=== PATIENT | male | born 1940 | race Caucasian/White ===

== ENCOUNTER 2020-05-01 13:11 | Emergency (ER) | payer OTHER ==
[~2020-05-01] VITALS: Ht 175.3 cm; Wt 63.6 kg
--- NOTE | 2020-05-01 13:41 | PHYS DOC ---
Past Medical History Additional Past Medical Histor: RA, chronic neck knee and elbow pain Past Surgical History multiple surgeries of the neck and elbow. bilateral knee surgeries. Alcohol Use: None Drug Use: None General Adult EDM: Chief Complaint: MECHANICAL FALL HPI: HPI: 79-year-old male presenting to the emergency department today after falling yesterday when he was looking at houses. He reports sustaining a mechanical fall without syncope. He fell and hit his head. He is not on blood thinners. He did not pass out. He has not had any symptoms since falling other than some mild neck pain. He denies any numbness weakness or tingling of his arms or legs. Review of systems is negative for chest pain shortness of breath abdominal pain. He has some lower back pain in the muscles without any pain in the middle of the spine. All other review of systems negative. ED course: 79-year-old male presenting after sustaining mechanical fall hitting his head. CT the head and max face are unremarkable. Patient cervical spine CT shows T1 mild superior endplate compression fracture of unknown age. I called our neurosurgeon who is able to evaluate the films and believe this to be chronic and not acute in age. We will discharge patient from the emergency department and refer him out patient to neurosurgery in the next day or 2. Heart Score: Risk Factors: Risk Factors: DM, Current or recent (<one month) smoker, HTN, HLP, family hist ory of CAD, obesity. Risk Scores: Score 0 - 3: 2.5% MACE over next 6 weeks - Discharge Home Score 4 - 6: 20.3% MACE over next 6 weeks - Admit for Clinical Observation Score 7 - 10: 72.7% MACE over next 6 weeks - Early Invasive Strategies Physical Exam: PE: Constitutional: Well developed, well nourished, no acute distress, non-toxic appearance. [] HENT: Normocephalic, ecchymosis on the upper portion of the patient's eyebrow medial to the eye, bilateral external ears normal, oropharynx moist, no oral exudates, nose normal. [] There is no midface instability. Eyes: PERRLA, EOMI, conjunctiva normal, no discharge. [] Neck: Normal range of motion, no tenderness, supple, no stridor. [] Nontender midline. No step-offs abrasions lacerations or ecchymosis. Cardiovascular:Heart rate regular rhythm, no murmur [] Lungs & Thorax: Bilateral breath sounds clear to auscultation [] Abdomen: Bowel sounds normal, soft, no tenderness, no masses, no pulsatile masses. [] Skin: Warm, dry, no erythema, no rash. [] Back: No tenderness, no CVA tenderness. [] Patient is nontender midline thoracic Extremities: No tenderness, no cyanosis, no clubbing, ROM intact, no edema. [] Neurologic: Alert and oriented X 3, normal motor function, normal sensory function, no focal deficits noted. [] Psychologic: Affect normal, judgement normal, mood normal. [] EKG: EKG: [] Radiology/Procedures: Radiology/Procedures: [] Course & Med Decision Making: Course & Med Decision Making Pertinent Labs and Imaging studies reviewed. (See chart for details) [] Dragon Disclaimer: Dragon Disclaimer: This electronic medical record was generated, in whole or in part, using a voice recognition dictation system. Departure Departure Impression: Primary Impression: Head injury Disposition: 01 HOME, SELF-CARE Condition: STABLE Referrals: GEORGE CAZARES MD 2 days Patient Instructions: Head Injury, Adult Justicifation of Admission Dx: Justifications for Admission: Justification of Admission Dx: DULCE Cast MD May 01, 2020 13:41
--- NOTE | 2020-05-01 14:19 | RAD ---
CT MAXILLOFACIAL WO CONTRAST, CT HEAD AND CERVICAL SPINE WO History: Reason: facial injury / Spl. Instructions: / History: Comparison: None. Technique: Noncontrast CT imaging was performed of the head, maxillofacial and cervical spine. Coronal and sagittal reconstructions were performed. Exposure: One or more of the following individualized dose reduction techniques were utilized for this examination: 1. Automated exposure control 2. Adjustment of the mA and/or kV according to patient size 3. Use of iterative reconstruction technique. Findings: Head CT: No intracranial hemorrhage. No mass effect. No hydrocephalus. Mild foci of decreased attenuation within the hemispheric white matter, most often due to chronic microvascular ischemia. Maxillofacial CT: No acute maxillofacial fracture. Orbits are unremarkable. Paranasal sinuses and mastoid air cells are clear. No acute calvarial fracture. Cervical spine CT: Anterior stabilization and interbody fusion C5-C7. Chronic appearing T1 superior endplate mild compression deformity. C1-C2 degenerative changes. Multilevel cervical spondylosis with facet arthropathy. Multilevel neuroforaminal narrowing. C5-C6 posterior osteophyte contributing to mild canal narrowing. No high-grade canal stenosis. Biapical fibronodular stranding. Impression: Head CT: 1. No acute intracranial abnormality. Maxillofacial CT: 1. No acute maxillofacial fracture. Cervical spine CT: 1. Chronic appearing T1 mild superior endplate compression fracture although age indeterminate. Recommend comparison with prior imaging studies. If concern with focal pain, MRI can better evaluate. 2. Postoperative changes cervical spine. 3. Multilevel cervical spondylosis. Electronically signed by: Edu Del Real DO (05/01/2020 2:16 PM) [id number]
[2020-05-01 15:22] VITALS: BP 166/77
--- NOTE | 2020-05-02 04:33 | EKG ---
[facility] [address] [place] [address] Test Date: 2020-05-01 Test Time: 13:21:23 Pat Name: MIKE ANDERSON Department: Room: Gender: M Surgical Coordinator: : 1940 Requested By: DULCE WOODSON Order Number: [id number] Reading MD: Measurements Intervals [place] Rate: 60 P: 54 ME: 142 QRS: 49 QRSD: 92 T: 51 QT: 398 QTc: 398 Interpretive Statements SINUS RHYTHM NORMAL ECG RI6.01 No previous ECG available for comparison
== END 2020-05-01 15:30 | disposition home or self-care (01) ==
LOC: ER 13:11
DX: S00.12XA Contusion of left eyelid and periocular area, initial encounter (principal); S00.11XA Contusion of right eyelid and periocular area, initial encounter; M54.2 Cervicalgia; M54.5 Low back pain; G89.29 Other chronic pain; Z98.890 Other specified postprocedural states; W18.39XA Other fall on same level, initial encounter; Y93.89 Activity, other specified; Y92.098 Other place in other non-institutional residence as the place of occurrence of the external cause; Y99.8 Other external cause status
CPT/HCPCS: 70450; 70486; 72125; 93005; 99285

== ENCOUNTER 2021-08-04 11:25 | Inpatient (IN) | payer MEDICARE, OTHER ==
[~2021-08-04] VITALS: Ht 175.3 cm; Wt 59.2 kg
[2021-08-04] MEDS ORDERED: MORPHINE SULFATE 4 MG/ML INJ. IVP ONE ×2 (11:45→13:00)
[2021-08-04] MEDS ORDERED: IV NORMAL SALINE 1000ML BAG 1,000 ML IV ONE (11:45)
[2021-08-04 12:21] LABS: BILIRUBIN,URINE NEGATIVE (NEG); CLARITY,URINE CLEAR; COLOR,URINE YELLOW; NITRITE,URINE NEGATIVE (NEG); PH,URINE 7.5 (<5.0-8.0); PROTEIN,URINE NEGATIVE (NEG-TRACE); UROBILINOGEN,URINE 0.2 mg/dL (0.2 mg/dL)
[2021-08-04 12:22] LABS: BASO # 0.1 x10^3/uL (0.0-0.2); BASO % 1 % (0-3); EOS # 0.2 x10^3/uL (0.0-0.7); EOS % 2 % (0-3); HEMATOCRIT 32.2 % (39.0-53.0); HEMOGLOBIN 10.8 g/dL (13.0-17.5); LYMPH # 1.4 x10^3/uL (1.0-4.8); LYMPH % 14 % (24-48); MEAN CORPUSCULAR HEMOGLOBIN 33 pg (25-35); MEAN CORPUSCULAR HGB CONC 33 g/dL (31-37); MEAN CORPUSCULAR VOLUME 97 fL (79-100); MONO # 0.7 x10^3/uL (0.0-1.1); MONO % 7 % (0-9); NEUT # 7.8 x10^3/uL (1.8-7.7); NEUT % 76 % (31-73); PLATELET COUNT 201 x10^3/uL (140-400); RED BLOOD COUNT 3.31 x10^6/uL (4.30-5.70); RED CELL DISTRIBUTION WIDTH 13.2 % (11.5-14.5); WHITE BLOOD COUNT 10.2 x10^3/uL (4.0-11.0)
[2021-08-04 12:28] LABS: CALCIUM 8.5 mg/dL (8.5-10.1); CREATININE 1.3 mg/dL (0.7-1.3); GFR 52.9; POTASSIUM 4.1 mmol/L (3.5-5.1)
[2021-08-04 12:31] LABS: BACTERIA,URINE FEW /HPF (0-FEW); RBC,URINE OCC /HPF (0-2)
[2021-08-04 12:35] LABS: ALBUMIN 3.2 g/dL (3.4-5.0); ALBUMIN/GLOBULIN RATIO 1.1 (1.0-1.7); TOTAL BILIRUBIN 0.4 mg/dL (0.2-1.0)
--- NOTE | 2021-08-04 12:35 | RAD ---
XR CHEST 1V History: Perioperative. Comparison: None. Technique: Portable AP radiograph of the chest. Findings: The lungs are hyperinflated. No focal airspace consolidation, pleural effusion or pneumothorax. Biapi gal pleural thickening. Cardiomediastinal silhouette and pulmonary vasculature are within normal limi ts. Lower cervical ACDF. No acute osseous abnormality. Soft tissues are unremarkable. Impression: 1. No acute cardiopulmonary process. Electronically signed by: Desmond Craig MD (08/04/2021 12:33 PM) [id number]
--- NOTE | 2021-08-04 12:45 | PDOC1 ---
History and Physical Date of Admission Date of Admission DATE: 08/04/21 TIME: 12:44 Identification/Chief Complaint Chief Complaint right hip pain after fall out side home today History of Present Illness History of Present Illness 81 yr old male who fell today , outside his home, denies syncope, just fell on uneven ground / x ray c/w right hip fax, he has noted a mild cough and Covid 19 screen is pos in ER today denies chest pain, fever, abdominal pain, head or neck injury hgb 10.8 cr 1.3 , remote smoker has hx CAD with stents, remote// hx Anterior stabilization and interbody fusion C5-C7 EKG @1133 NSR at 64bpm, NO ST elevation, QRS 92ms, QT/QTc 386/402ms,/ denies any numbness weakness or tingling of his arms or legs. impression Mechanical fall at home, accidental / Acute Comminuted intertrochanteric fracture of the right proximal femur. /Covid POS screen in ER, minimal symptoms Essential hypertension plan consult ortho, consult cardiology pre-op exam, consider echo Past Medical History Past Medical History Past Medical History Past Medical History: Hypertension, [place] Additional Past Medical Histor: RA, chronic neck knee and elbow pain Past Surgical History: Knee Replacement Additional Past Surgical Histo: RA, 4 CARDIAC STENTS, EXTENSIVE ELBOW SURGERIES, L hip fx Smoking Status: Former Smoker Alcohol Use: None Drug Use: None FHX COPD, HTN Heme/Onc: Anemia NOS Family History Family History: Hypertension Social History Smoke: Quit ALCOHOL: none Drugs: None Current Medications Current Medications Current Medications Sodium Chloride 1,000 ml @ 1,000 mls/hr 1X ONCE IV Last administered on 08/04/21at 12:15; Start 08/04/21 at 11:45; Stop 08/04/21 at 12:44; Status DC Morphine Sulfate (Morphine Sulfate) 4 mg 1X ONCE IVP Last administered on 08/04/21at 11:51; Start 08/04/21 at 11:45; Stop 08/04/21 at 11:46; Status DC Allergies Allergies: Coded Allergies: iodamide (Verified Allergy, Severe, anaphylaxis, 08/04/21) ROS General: No: Chills, Night Sweats, Fatigue, Malaise, Appetite, Other PSYCHOLOGICAL ROS: No: Anxiety, Behavioral Disorder, Concentration difficultie, Decreased libido, Depression, Disorientation, Hallucinations, Hostility, Irritablity, Memory difficulties, Mood Swings, Obsessive thoughts, Physical abuse, Sexual abuse, Sleep disturbances, Suicidal ideation, Other Eyes: No Blurry vision, No Decreased vision, No Double vision, No Dry eyes, No Excessive tearing, No Eye Pain, No Itchy Eyes, No Loss of vision, No Photophobia, No Scotomata, No Uses contacts, No Uses glasses, No Other HEENT: No: Heacaches, Visual Changes, Hearing change, Nasal congestion, Nasal discharge, Oral lesions, Sinus pain, Sore Throat, Epistaxis, Sneezing, Snoring, Tinnitus, Vertigo, Vocal changes, Other ALLERGY AND IMMUNOLOGY: YES: Hives; No: Insect Bite Sensitivity, Itchy/Watery Eyes, Nasal Congestion, Post Nasal Drip, Seasonal Allergies, Other Hematological and Lymphatic: No: Bleeding Problems, Blood Clots, Blood Transfusions, Brusing, Night Sweats, Pallor, Swollen Lymph Nodes, Other ENDOCRINE: No: Breast Changes, Galactorrhea, Hair Pattern Changes, Hot Flashes, Malaise/lethargy, Mood Swings, Palpitations, Polydipsia/polyuria, Skin Changes, Temperature Intolerance, Unexpected Weight Changes, Other Breast: No New/Changing Breast Lumps, No Nipple changes, No Nipple discharge, No Other Respiratory: YES: Cough; No: Hemoptysis, Orthopnea, Pleuritic Pain, Shortness of breath, SOB with excertion, Sputum Changes, Stridor, Tachypnea, Wheezing, Other Cardiovascular: No Chest Pain, No Palpitations, No Orthopnea, No Paroxysmal Noc. Dyspnea, No Edema, No Lt Headedness, No Other Gastrointestinal: No Nausea, No Vomiting, No Abdominal Pain, No Diarrhea, No Constipation, No Melena, No Hematochezia, No Other Genitourinary: No Dysuria, No Frequency, No Incontinence, No Hematuria, No Retention, No Discharge, No Urgency, No Pain, No Flank Pain, No Other, No , No , No , No , No , No , No Musculoskeletal: Yes Gait Disturbance, Yes Joint Pain, Yes Joint Stiffness, Yes Joint Swelling, Yes Pain In: (r hip) Neurological: Yes Gait Disturbance; No Behavorial Changes, No Bowel/Bladder ControlChng, No Confusion, No Dizziness, No Headaches, No Impaired Coord/balance, No Memory Loss, No Numbness/Tingling, No Seizures, No Speech Problems, No Tremors, No Visual Changes, No Weakness, No Other Skin: No Dry Skin, No Eczema, No Hair Changes, No Lumps, No Mole Changes, No Mottling, No Nail Changes, No Pruritus, No Rash, No Skin Lesion Changes, No Other, No Acne Physical Exam Physical Exam Neck: Normal range of motion, no tenderness, supple, no stridor. Cardiovascular:Heart rate regular rhythm, no murmur [] Lungs & Thorax: Bilateral breath sounds clear to auscultation [] Abdomen: Bowel sounds normal, soft, no tenderness, no masses, no pulsatile masses. [] Skin: Warm, dry, no erythema, no rash. [] Back: No tenderness, no CVA tenderness. [] Patient is nontender midline thoracic Extremities: r hip tender, ext rotation no cyanosis, no clubbing, no edema. [] Neurologic: Alert and oriented X 3, General: Alert, Oriented X3, Cooperative, mild distress HEENT: Atraumatic, PERRLA, EOMI, Mucous membr. moist/pink Lungs: Clear to auscultation, Normal air movement Heart: S1S2, RRR, no thrills, no gallops, no murmurs Breasts: Not examined Abdomen: Normal bowel sounds, Soft Rectal Exam: not examined PELVIC: Examination not indicated Extremities: No cyanosis, No edema Skin: No significant lesion Neuro: Normal speech, Strength at 5/5 X4 ext, Sensation intact, Cranial nerves 3-12 NL Psych/Mental Status: Mental status NL, Mood NL Vitals Vitals Vital Signs Date Time Temp Pulse Resp B/P (MAP) Pulse Ox O2 Delivery O2 Flow Rate FiO2 08/04/21 11:51 16 96 Room Air 08/04/21 11:40 98.1 65 165/75 (105) 98.1 Labs Labs Laboratory Tests Test 08/04/21 12:03 08/04/21 12:05 08/04/21 12:08 Urine Collection Type Void Urine Color Yellow Urine Clarity Clear Urine pH 7.5 (<5.0-8.0) Urine Specific [place] <=1.005 (1.000-1.030) Urine Protein Negative mg/dL (NEG-TRACE) Urine Glucose (UA) Negative mg/dL (NEG) Urine Ketones (Stick) Negative mg/dL (NEG) Urine Blood Negative (NEG) Urine Nitrite Negative (NEG) Urine Bilirubin Negative (NEG) Urine Urobilinogen Dipstick 0.2 mg/dL (0.2 mg/dL) Urine Leukocyte Esterase Trace (NEG) Urine RBC Occ /HPF (0-2) Urine WBC 5-10 /HPF (0-4) Urine Bacteria Few /HPF (0-FEW) SARS-CoV-2 Antigen (Rapid) Positive (NEGATIVE) White Blood Count 10.2 x10^3/uL (4.0-11.0) Red Blood Count 3.31 x10^6/uL (4.30-5.70) Hemoglobin 10.8 g/dL (13.0-17.5) Hematocrit 32.2 % (39.0-53.0) Mean Corpuscular Volume 97 fL (79-100) Mean Corpuscular Hemoglobin 33 pg (25-35) Mean Corpuscular Hemoglobin Concent 33 g/dL (31-37) Red Cell Distribution Width 13.2 % (11.5-14.5) Platelet Count 201 x10^3/uL (140-400) Neutrophils (%) (Auto) 76 % (31-73) Lymphocytes (%) (Auto) 14 % (24-48) Monocytes (%) (Auto) 7 % (0-9) Eosinophils (%) (Auto) 2 % (0-3) Basophils (%) (Auto) 1 % (0-3) Neutrophils # (Auto) 7.8 x10^3/uL (1.8-7.7) Lymphocytes # (Auto) 1.4 x10^3/uL (1.0-4.8) Monocytes # (Auto) 0.7 x10^3/uL (0.0-1.1) Eosinophils # (Auto) 0.2 x10^3/uL (0.0-0.7) Basophils # (Auto) 0.1 x10^3/uL (0.0-0.2) Sodium Level 138 mmol/L (136-145) Potassium Level 4.1 mmol/L (3.5-5.1) Chloride Level 104 mmol/L (98-107) Carbon Dioxide Level 26 mmol/L (21-32) Anion Gap 8 (6-14) Blood Urea Nitrogen 41 mg/dL (8-26) Creatinine 1.3 mg/dL (0.7-1.3) Estimated GFR (Cockcroft-Gault) 52.9 BUN/Creatinine Ratio 32 (6-20) Glucose Level 113 mg/dL (70-99) Calcium Level 8.5 mg/dL (8.5-10.1) Magnesium Level 2.0 mg/dL (1.8-2.4) Total Bilirubin 0.4 mg/dL (0.2-1.0) Aspartate Amino Transf (AST/SGOT) 28 U/L (15-37) Alanine Aminotransferase (ALT/SGPT) 30 U/L (16-63) Alkaline Phosphatase 80 U/L (46-116) Creatine Kinase 110 U/L (39-308) Creatine Kinase MB (Mass) 2.3 ng/mL (0.0-3.6) Creatine Kinase MB Relative Index 2.1 % (0-4) Troponin I Quantitative < 0.017 ng/mL (0.000-0.055) Total Protein 6.0 g/dL (6.4-8.2) Albumin 3.2 g/dL (3.4-5.0) Albumin/Globulin Ratio 1.1 (1.0-1.7) Laboratory Tests Test 08/04/21 12:03 08/04/21 12:05 08/04/21 12:08 Urine Collection Type Void Urine Color Yellow Urine Clarity Clear Urine pH 7.5 (<5.0-8.0) Urine Specific [place] <=1.005 (1.000-1.030) Urine Protein Negative mg/dL (NEG-TRACE) Urine Glucose (UA) Negative mg/dL (NEG) Urine Ketones (Stick) Negative mg/dL (NEG) Urine Blood Negative (NEG) Urine Nitrite Negative (NEG) Urine Bilirubin Negative (NEG) Urine Urobilinogen Dipstick 0.2 mg/dL (0.2 mg/dL) Urine Leukocyte Esterase Trace (NEG) Urine RBC Occ /HPF (0-2) Urine WBC 5-10 /HPF (0-4) Urine Bacteria Few /HPF (0-FEW) SARS-CoV-2 Antigen (Rapid) Positive (NEGATIVE) White Blood Count 10.2 x10^3/uL (4.0-11.0) Red Blood Count 3.31 x10^6/uL (4.30-5.70) Hemoglobin 10.8 g/dL (13.0-17.5) Hematocrit 32.2 % (39.0-53.0) Mean Corpuscular Volume 97 fL (79-100) Mean Corpuscular Hemoglobin 33 pg (25-35) Mean Corpuscular Hemoglobin Concent 33 g/dL (31-37) Red Cell Distribution Width 13.2 % (11.5-14.5) Platelet Count 201 x10^3/uL (140-400) Neutrophils (%) (Auto) 76 % (31-73) Lymphocytes (%) (Auto) 14 % (24-48) Monocytes (%) (Auto) 7 % (0-9) Eosinophils (%) (Auto) 2 % (0-3) Basophils (%) (Auto) 1 % (0-3) Neutrophils # (Auto) 7.8 x10^3/uL (1.8-7.7) Lymphocytes # (Auto) 1.4 x10^3/uL (1.0-4.8) Monocytes # (Auto) 0.7 x10^3/uL (0.0-1.1) Eosinophils # (Auto) 0.2 x10^3/uL (0.0-0.7) Basophils # (Auto) 0.1 x10^3/uL (0.0-0.2) Sodium Level 138 mmol/L (136-145) Potassium Level 4.1 mmol/L (3.5-5.1) Chloride Level 104 mmol/L (98-107) Carbon Dioxide Level 26 mmol/L (21-32) Anion Gap 8 (6-14) Blood Urea Nitrogen 41 mg/dL (8-26) Creatinine 1.3 mg/dL (0.7-1.3) Estimated GFR (Cockcroft-Gault) 52.9 BUN/Creatinine Ratio 32 (6-20) Glucose Level 113 mg/dL (70-99) Calcium Level 8.5 mg/dL (8.5-10.1) Magnesium Level 2.0 mg/dL (1.8-2.4) Total Bilirubin 0.4 mg/dL (0.2-1.0) Aspartate Amino Transf (AST/SGOT) 28 U/L (15-37) Alanine Aminotransferase (ALT/SGPT) 30 U/L (16-63) Alkaline Phosphatase 80 U/L (46-116) Creatine Kinase 110 U/L (39-308) Creatine Kinase MB (Mass) 2.3 ng/mL (0.0-3.6) Creatine Kinase MB Relative Index 2.1 % (0-4) Troponin I Quantitative < 0.017 ng/mL (0.000-0.055) Total Protein 6.0 g/dL (6.4-8.2) Albumin 3.2 g/dL (3.4-5.0) Albumin/Globulin Ratio 1.1 (1.0-1.7) Images Images History: Reason: facial injury / Spl. Instructions: / History: Comparison: None. Technique: Noncontrast CT imaging was performed of the head, maxillofacial and cervical spine. Coronal and sagittal reconstructions were performed. Exposure: One or more of the following individualized dose reduction techniques were utilized for this examination: 1. Automated exposure control 2. Adjustment of the mA and/or kV according to patient size 3. Use of iterative reconstruction technique. Findings: Head CT: No intracranial hemorrhage. No mass effect. No hydrocephalus. Mild foci of decreased attenuation within the hemispheric white matter, most often due to chronic microvascular ischemia. Maxillofacial CT: No acute maxillofacial fracture. Orbits are unremarkable. Paranasal sinuses and mastoid air cells are clear. No acute calvarial fracture. Cervical spine CT: Anterior stabilization and interbody fusion C5 History: Reason: facial injury / Spl. Instructions: / History: Comparison: None. Technique: Noncontrast CT imaging was performed of the head, maxillofacial and cervical spine. Coronal and sagittal reconstructions were performed. Exposure: One or more of the following individualized dose reduction techniques were utilized for this examination: 1. Automated exposure control 2. Adjustment of the mA and/or kV according to patient size 3. Use of iterative reconstruction technique. Findings: Head CT: No intracranial hemorrhage. No mass effect. No hydrocephalus. Mild foci of decreased attenuation within the hemispheric white matter, most often due to chronic microvascular ischemia. Maxillofacial CT: No acute maxillofacial fracture. Orbits are unremarkable. Paranasal sinuses and mastoid air cells are clear. No acute calvarial fracture. Cervical spine CT: Anterior stabilization and interbody fusion C5-C7. Chronic appearing T1 superior endplate mild compression deformity. C1-C2 degenerative changes. Multilevel cervical spondylosis with facet arthropathy. Multilevel neuroforaminal narrowing. C5-C6 posterior osteophyte contributing to mild canal narrowing. No high-grade canal stenosis. Biapical fibronodular stranding. Impression: Head CT: 1. No acute intracranial abnormality. Maxillofacial CT: 1. No acute maxillofacial fracture.-C7. Chronic appearing T1 superior endplate mild compression deformity. C1-C2 degenerative changes. Multilevel cervical spondylosis with facet arthropathy. Multilevel neuroforaminal narrowing. C5-C6 posterior osteophyte contributing to mild canal narrowing. No high-grade canal stenosis. Biapical fibronodular stranding. Impression: Head CT: 1. No acute intracranial abnormality. Maxillofacial CT: 1. No acute maxillofacial fracture. PATIENT: MIKE ANDERSON ACCOUNT: [id number] : 1940 LOCATION: ER AGE: 81 SEX: M EXAM STATUS: PRE ER ORD. PHYSICIAN: LILY BENNETT DO REASON: right hip pain/deformity PROCEDURE: HIP RIGHT 2V WITH PELVIS XR BILATERAL HIP (WITH OR WITHOUT PELVIS) 2 VIEWS_RIGHT History: Right hip pain/deformity. Comparison: None. Technique: AP view of the pelvis and 2 coned-down views of the right hip. Findings: Osseous mineralization is normal. There is a comminuted intertrochanteric fracture of the right proximal femur. Approximately 1.2 cm displacement at the distal fracture margin. Minimal degenerative changes of the right femoral acetabular joint which remains normally aligned. Incidental screw fixation of the left femoral neck. Sacroiliac joints are unremarkable. Pubic rami are intact. Impression: 1. Comminuted intertrochanteric fracture of the right proximal femur. Electronically signed by: Desmond Castillo MD (08/04/2021 12:46 PM) [id number] DICTATED and SIGNED BY: DESMOND CASTILLO MD DATE: 08/04/21 [id number] PATIENT: MIKE ANDERSON ACCOUNT: [id number] : 1940 LOCATION: ER AGE: 81 SEX: M EXAM STATUS: PRE ER ORD. PHYSICIAN: LILY BENNETT DO REASON: perioperative PROCEDURE: CHEST AP ONLY XR CHEST 1V History: Perioperative. Comparison: None. Technique: Portable AP radiograph of the chest. Findings: The lungs are hyperinflated. No focal airspace consolidation, pleural effusion or pneumothorax. Biapical pleural thickening. Cardiomediastinal silhouette and pulmonary vasculature are within normal limits. Lower cervical ACDF. No acute osseous abnormality. Soft tissues are unremarkable. Impression: 1. No acute cardiopulmonary process. Electronically signed by: Desmond Castillo MD (08/04/2021 12:33 PM) [id number] DICTATED and SIGNED BY: DESMOND CASTILLO MD DATE: 08/04/21 [id number] VTE Prophylaxis Ordered VTE Prophylaxis Devices: Yes VTE Pharmacological Prophylaxi: No Assessment/Plan Assessment/Plan Impression: Mechanical fall at home, accidental Acute Comminuted intertrochanteric fracture of the right proximal femur. Covid POS screen in ER, minimal symptoms Essential hypertension remote tobacco abuse HX Anterior stabilization and interbody fusion C5-C7 plan admit consult ortho npo o2 support prn iv pain control dvt prophylaxis SQ LOVENOX May need SNF/ PT/OT Justifications for Admission Other Justification ERLIN WRIGHT MD Aug 04, 2021 12:45
--- NOTE | 2021-08-04 12:48 | RAD ---
XR BILATERAL HIP (WITH OR WITHOUT PELVIS) 2 VIEWS_RIGHT History: Right hip pain/deformity. Comparison: None. Technique: AP view of the pelvis and 2 coned-down views of the right hip. Findings: Osseous mineralization is normal. There is a comminuted intertrochanteric fracture of the right proxi mal femur. Approximately 1.2 cm displacement at the distal fracture margin. Minimal degenerative hanks ges of the right femoral acetabular joint which remains normally aligned. Incidental screw fixation o f the left femoral neck. Sacroiliac joints are unremarkable. Pubic rami are intact. Impression: 1. Comminuted intertrochanteric fracture of the right proximal femur. Electronically signed by: Desmond Craig MD (08/04/2021 12:46 PM) [id number]
--- NOTE | 2021-08-04 13:18 | PHYS DOC ---
Past Medical History Past Medical History: Hypertension, [place] Additional Past Medical Histor: RA, chronic neck knee and elbow pain Past Surgical History: Knee Replacement Additional Past Surgical Histo: RA, 4 CARDIAC STENTS, EXTENSIVE ELBOW SURGERIES, L hip fx Smoking Status: Former Smoker Alcohol Use: None Drug Use: None General Adult EDM: Chief Complaint: MECHANICAL FALL HPI: HPI: Patient is a 81-year-old male presents via EMS with report of mechanical trip and fall while outside at his home in the yard landing on his right hip just prior to arrival. Patient reports significant pain to hip. EMS reports concern for deformity. Patient denies numbness or tingling. Denies striking his head or any neck pain. Denies loss of consciousness. Patient does use Plavix. EMS reports giving patient 150 mcg of fentanyl in route. Patient does report some cough and generalized malaise and weakness over the last several days. Patient does report Covid vaccination with Moderna x2 with last dose being received in January 2021. Review of Systems: Review of Systems: Constitutional: Denies fever or chills; reports body aches Eyes: Denies redness or eye pain HENT: Denies nasal congestion or sore throat Respiratory: Reports cough; denies shortness of breath Cardiovascular: Denies chest pain or palpitations GI: Denies abdominal pain, nausea, or vomiting : Denies dysuria or hematuria Musculoskeletal: Denies neck pain; reports right hip pain Integument: Denies rash or skin lesions Neurologic: Denies headache, focal weakness or sensory changes Complete systems were reviewed and found to be within normal limits, except as documented in this note. Heart Score: C/O Chest Pain: N/A Current Medications: Current Medications Medications (Trade) Dose Ordered Sig/Cynthia Start Time Stop Time Status Last Admin Dose Admin Morphine Sulfate (Morphine Sulfate) 4 mg 1X ONCE 08/04/21 13:00 08/04/21 13:01 DC Sodium Chloride 1,000 ml @ 1,000 mls/hr 1X ONCE 08/04/21 11:45 08/04/21 12:44 DC 08/04/21 12:15 1,000 MLS/HR Allergies: Allergies: Allergies Coded Allergies Type Severity Reaction Last Updated Verified iodamide Allergy Severe anaphylaxis 08/04/21 Yes Physical Exam: PE: Constitutional: Well developed, well nourished, no acute distress, non-toxic appearance HENT: Normocephalic, atraumatic Eyes: PERRL, EOMI, conjunctiva normal, no discharge Neck: Normal range of motion, no midline tenderness, supple, no meningeal signs Lungs & Thorax: No respiratory distress, equal chest rise and fall Abdomen: Soft, no tenderness; pelvis stable and nontender Skin: Warm, dry, no erythema, no rash Back: No midline tenderness, no CVA tenderness Extremities: Right groin tenderness, ROM decreased due to pain, shortening of right leg noted Neurologic: Alert and oriented X 3, normal motor function, normal sensory function, no focal deficits noted Psychologic: Affect normal, judgment normal Current Patient Data: Labs: Laboratory Tests Test 08/04/21 12:03 08/04/21 12:05 08/04/21 12:08 Urine Collection Type Void Urine Color Yellow Urine Clarity Clear Urine pH 7.5 (<5.0-8.0) Urine Specific [place] <=1.005 (1.000-1.030) Urine Protein Negative mg/dL (NEG-TRACE) Urine Glucose (UA) Negative mg/dL (NEG) Urine Ketones (Stick) Negative mg/dL (NEG) Urine Blood Negative (NEG) Urine Nitrite Negative (NEG) Urine Bilirubin Negative (NEG) Urine Urobilinogen Dipstick 0.2 mg/dL (0.2 mg/dL) Urine Leukocyte Esterase Trace (NEG) Urine RBC Occ /HPF (0-2) Urine WBC 5-10 /HPF (0-4) Urine Bacteria Few /HPF (0-FEW) SARS-CoV-2 Antigen (Rapid) Positive (NEGATIVE) *A White Blood Count 10.2 x10^3/uL (4.0-11.0) Red Blood Count 3.31 x10^6/uL (4.30-5.70) L Hemoglobin 10.8 g/dL (13.0-17.5) L Hematocrit 32.2 % (39.0-53.0) L Mean Corpuscular Volume 97 fL (79-100) Mean Corpuscular Hemoglobin 33 pg (25-35) Mean Corpuscular Hemoglobin Concent 33 g/dL (31-37) Red Cell Distribution Width 13.2 % (11.5-14.5) Platelet Count 201 x10^3/uL (140-400) Neutrophils (%) (Auto) 76 % (31-73) H Lymphocytes (%) (Auto) 14 % (24-48) L Monocytes (%) (Auto) 7 % (0-9) Eosinophils (%) (Auto) 2 % (0-3) Basophils (%) (Auto) 1 % (0-3) Neutrophils # (Auto) 7.8 x10^3/uL (1.8-7.7) H Lymphocytes # (Auto) 1.4 x10^3/uL (1.0-4.8) Monocytes # (Auto) 0.7 x10^3/uL (0.0-1.1) Eosinophils # (Auto) 0.2 x10^3/uL (0.0-0.7) Basophils # (Auto) 0.1 x10^3/uL (0.0-0.2) Sodium Level 138 mmol/L (136-145) Potassium Level 4.1 mmol/L (3.5-5.1) Chloride Level 104 mmol/L (98-107) Carbon Dioxide Level 26 mmol/L (21-32) Anion Gap 8 (6-14) Blood Urea Nitrogen 41 mg/dL (8-26) H Creatinine 1.3 mg/dL (0.7-1.3) Estimated GFR (Cockcroft-Gault) 52.9 BUN/Creatinine Ratio 32 (6-20) H Glucose Level 113 mg/dL (70-99) H Calcium Level 8.5 mg/dL (8.5-10.1) Magnesium Level 2.0 mg/dL (1.8-2.4) Total Bilirubin 0.4 mg/dL (0.2-1.0) Aspartate Amino Transferase (AST) 28 U/L (15-37) Alanine Aminotransferase (ALT) 30 U/L (16-63) Alkaline Phosphatase 80 U/L (46-116) Creatine Kinase 110 U/L (39-308) Creatine Kinase MB (Mass) 2.3 ng/mL (0.0-3.6) Creatine Kinase MB Relative Index 2.1 % (0-4) Troponin I Quantitative < 0.017 ng/mL (0.000-0.055) Total Protein 6.0 g/dL (6.4-8.2) L Albumin 3.2 g/dL (3.4-5.0) L Albumin/Globulin Ratio 1.1 (1.0-1.7) Laboratory Tests 08/04/21 12:08 Laboratory Tests 08/04/21 12:08 Vital Signs: Vital Signs Date Time Temp Pulse Resp B/P (MAP) Pulse Ox O2 Delivery O2 Flow Rate FiO2 08/04/21 11:51 16 96 Room Air 08/04/21 11:40 98.1 65 165/75 (105) 98.1 EKG: EKG: @1133 NSR at 64bpm, NO ST elevation, QRS 92ms, QT/QTc 386/402ms, Radiology/Procedures: Radiology/Procedures: PROCEDURE: HIP RIGHT 2V WITH PELVIS XR BILATERAL HIP (WITH OR WITHOUT PELVIS) 2 VIEWS_RIGHT History: Right hip pain/deformity. Comparison: None. Technique: AP view of the pelvis and 2 coned-down views of the right hip. Findings: Osseous mineralization is normal. There is a comminuted intertrochanteric fracture of the right proximal femur. Approximately 1.2 cm displacement at the distal fracture margin. Minimal degenerative changes of the right femoral acetabular joint which remains normally aligned. Incidental screw fixation of the left femoral neck. Sacroiliac joints are unremarkable. Pubic rami are intact. Impression: 1. Comminuted intertrochanteric fracture of the right proximal femur. Electronically signed by: Desmond Craig MD (08/04/2021 12:46 PM) [id number] PROCEDURE: CHEST AP ONLY XR CHEST 1V History: Perioperative. Comparison: None. Technique: Portable AP radiograph of the chest. Findings: The lungs are hyperinflated. No focal airspace consolidation, pleural effusion or pneumothorax. Biapical pleural thickening. Cardiomediastinal silhouette and p ulmonary vasculature are within normal limits. Lower cervical ACDF. No acute osseous abnormality. Soft tissues are unremarkable. Impression: 1. No acute cardiopulmonary process. Electronically signed by: Desmond Craig MD (08/04/2021 12:33 PM) [id number] Course & Med Decision Making: Course & Med Decision Making Pertinent Labs and Imaging studies reviewed. (See chart for details) Patient presents via EMS with report of mechanical trip and fall with subsequent right hip pain and deformity. Limb neurovascularly intact. Patient denies any head trauma or neck pain. Pain addressed. X-ray confirmed right intertrochanteric fracture. EKG stable. Labs obtained and posted to chart. Chest x-ray without acute finding. Patient did undergo Covid testing with with rapid Covid test positive. Patient is Covid vaccinated. UA with signs of infect ion. Empiric antibiotic given. Discussed case with Dr. Scott (orthopedics) who is in agreement with consultation with plan for OR tomorrow. Patient requiring admission for further evaluation and treatment. Discussed with Dr. Schmitt (hospitalist) who is in agreement with admission. Discussed findings and plan with patient, who acknowledges understanding and agreement. Dragon Disclaimer: Dragon Disclaimer: This electronic medical record was generated, in whole or in part, using a voice recognition dictation system. Departure Departure Impression: Primary Impression: Fall Qualified Codes: W19.XXXA - Unspecified fall, initial encounter Additional Impressions: Intertrochanteric fracture of right hip Qualified Codes: S72.141A - Displaced intertrochanteric fracture of right femur, initial encounter for closed fracture COVID-19 UTI (urinary tract infection) Disposition: ADMITTED INPATIENT Admitting Physician: STEVE (Oskar) Condition: STABLE Referrals: RENEE BRENNER (PCP) LILY BENNETT DO Aug 04, 2021 13:18
[2021-08-04] MEDS ORDERED: 0.9 % SODIUM CHLORIDE 10 ML DISP.SYRIN. IV PRN (13:30)
[2021-08-04] MEDS ORDERED: guaiFENesin ORAL 200 MG/10 ML LIQUID. PO PRN (13:30)
[2021-08-04] MEDS ORDERED: MAG HYDROX/ALUMINUM HYD/SIMETH 30 ML ORAL.SUSP PO PRN (13:30)
[2021-08-04] MEDS ORDERED: ALBUTEROL SULFATE 2.5 MG/3 ML NEBU. NEB PRN (13:30)
[2021-08-04] MEDS ORDERED: DOCUSATE SODIUM 100 MG CAPSULE. PO PRN (13:30)
[2021-08-04] MEDS ORDERED: SODIUM PHOSPHATES 19/7GM 133 ML ENEMA. PR PRN (13:30)
[2021-08-04] MEDS ORDERED: ONDANSETRON PF 4 MG/2 ML VIAL. IV PRN (13:30)
[2021-08-04] MEDS ORDERED: ONDANSETRON PF 4 MG/2 ML VIAL. IVP PRN (13:30)
[2021-08-04] MEDS: ENOXAPARIN 40 MG/0.4 ML SYRINGE. SQ SCH (14:00)
[2021-08-04] MEDS ORDERED: HYDROmorphone 2 MG/ML VIAL IVP ONE (14:00)
[2021-08-04] MEDS: HYDROmorphone 2 MG/ML VIAL IV PRN ×3 (15:35→21:50)
[2021-08-04] MEDS: IV NORMAL SALINE 1000ML BAG 1,000 ML IV SCH (15:40)
[2021-08-04] MEDS ORDERED: GABA-585 PO (16:24)
[2021-08-04] MEDS ORDERED: ATOR20TA58 PO (16:24)
[2021-08-04] MEDS ORDERED: TOPI25TA7 PO (16:24)
[2021-08-04] MEDS ORDERED: TRAM50TA PO (16:24)
[2021-08-04] MEDS ORDERED: CLOP75TA PO (16:24)
[2021-08-04] MEDS ORDERED: METO-239 PO (16:24)
[2021-08-04] MEDS ORDERED: [UNRECOGNIZED DRUG - OTHER] PO (16:24)
[2021-08-04] MEDS ORDERED: ASPI-886 PO (16:24)
[2021-08-04] MEDS ORDERED: FAMO40TA4 PO (16:24)
--- NOTE | 2021-08-04 16:26 | NUR ---
Dr. Colbert at [facility] is primary music therapist [employer].
[2021-08-04] MEDS ORDERED: cefTRIAXone IV Push 1 GM VIAL. IVP ONE (17:00)
--- NOTE | 2021-08-04 18:25 | NUR ---
PATIENT ARRIVED ON THE UNIT PER BED, COMFORT MEASURES GIVEN, CARDIAC DIET OFFERED, PATIENT INFORMED THIS GANG DRILL OPERATOR THAT HE WOULD EAT AFTER HIS PAIN MEDICINE KICKS IN, NS RESTARTED AT 80CC/HR.
[2021-08-04] MEDS ORDERED: INFLUENZA VAX SCREEN BY RX. MC ONE (18:30)
[2021-08-04 19:00] VITALS: BP 157/76
[2021-08-04 23:18] VITALS: BP 156/67
[2021-08-05] VITALS (9 sets, daily range): BP systolic 120–152; BP diastolic 53–75
[2021-08-05] MEDS: fentaNYL PF VIAL 100 MCG/2 ML VIAL IVP PRN ×5 (00:40→15:01)
[2021-08-05] MEDS: IV NORMAL SALINE 1000ML BAG 1,000 ML IV SCH ×2 (03:44→14:30)
--- NOTE | 2021-08-05 11:01 | PDOC2 ---
CARDIAC CONSULT DATE OF CONSULT Date of Consult DATE: 08/05/21 TIME: 10:42 REASON FOR CONSULT Reason for Consult: preop cardiac eval, hx of CAD, ASHD REFERRING PHYSICIAN Referring Physician: Fullbright SOURCE Source: Chart review, Patient HISTORY OF PRESENT ILLNESS HISTORY OF PRESENT ILLNESS This is a pleasant 81 yo male admitted for complains of fall. This happened in his yard and was unable to get up and EMS arrived and noted deformity to his right leg. Currently the RLE has shorter length that the left. There was no associated chest pain, palpitations, SOA, and no dizziness or passing out related to the event. He has had several falls in the past and already had hip nailing to his left hip. He has CAD and had stents per his recollection last time was 3 yrs ago and follows up with [facility] cardiology. Further testing noted that he is positive for covid-19 and has been vaccinated last January. He has been having some mild nonproducitve cough and some weakness, Denies any DM, renal disease. PAST MEDICAL HISTORY Cardiovascular: CAD, HTN, Hyperlipidemia Pulmonary: COPD CENTRAL NERVOUS SYSTEM: TIA GI: GERD Musculoskeletal: Osteoarthritis, Other (falls) Rheumatologic: Rheumatoid arthritis Infectious disease: No pertinent hx Renal/: Benign prostatic enlarg. Endocrine: No pertinent hx Dermatology: Other (skin CA) PAST SURGICAL HISTORY Past Surgical History: Appendectomy, Arthroscopy (left hip nailing), Cataract Removal, Hernia Repair, Other (PCI) FAMILY HISTORY Family History: Hypertension SOCIAL HISTORY Smoke: Quit ALCOHOL: none Drugs: None Lives: with Family CURRENT MEDICATIONS CURRENT MEDICATIONS Current Medications Medications (Trade) Dose Ordered Sig/Cynthia Route PRN Reason Start Time Stop Time Status Last Admin Dose Admin Sodium Chloride 1,000 ml @ 1,000 mls/hr 1X ONCE IV 08/04/21 11:45 08/04/21 12:44 DC 08/04/21 12:15 Morphine Sulfate (Morphine Sulfate) 4 mg 1X ONCE IVP 08/04/21 11:45 08/04/21 11:46 DC 08/04/21 11:51 Morphine Sulfate (Morphine Sulfate) 4 mg 1X ONCE IVP 08/04/21 13:00 08/04/21 13:01 DC 08/04/21 13:23 Fentanyl Citrate (Fentanyl 2ml Vial) 50 mcg Q2HR PRN IVP PAIN 08/04/21 13:30 08/05/21 13:29 08/05/21 07:20 Sodium Chloride 1,000 ml @ 80 mls/hr [id number] IV 08/04/21 13:30 08/05/21 03:44 Hydromorphone HCl (Dilaudid) 0.4 mg PRN Q2HRS PRN IV SEVERE PAIN 7-10 08/04/21 13:30 08/04/21 21:50 Hydromorphone HCl (Dilaudid) 1 mg 1X ONCE IVP 08/04/21 14:00 08/04/21 14:01 DC 08/04/21 13:55 Ceftriaxone Sodium (Rocephin) 1 gm 1X ONCE IVP 08/04/21 17:00 08/04/21 17:01 DC 08/04/21 21:49 ALLERGIES ALLERGIES: Coded Allergies: iodamide (Verified Allergy, Severe, anaphylaxis, 08/04/21) ROS Review of System 14 point ROS evaluated with pertinent positives noted per HPI PHYSICAL EXAM General: Alert, Oriented X3, Cooperative, No acute distress HEENT: Atraumatic, Mucous membr. moist/pink Lungs: Clear to auscultation, Normal air movement Heart: Regular rate (SR), Normal S1, Normal S2, Other (3/6 systolic murmur to WILLY border) Abdomen: Soft, No tenderness Extremities: No cyanosis, No edema Skin: No breakdown, No significant lesion Neuro: Normal speech, Sensation intact Psych/Mental Status: Mental status NL, Mood NL MUSCULOSKELETAL: Osteoarthritic changes both hands, Other (RLE shorter than left) VITALS/I&O VITALS/I&O: Vital Signs Date Time Temp Pulse Resp B/P (MAP) Pulse Ox O2 Delivery O2 Flow Rate FiO2 08/05/21 10:19 96 Room Air 08/05/21 07:00 98.0 89 18 144/63 (90) 98.0 08/05/21 04:13 3.0 I & O 08/04/21 08/04/21 08/05/21 15:00 23:00 07:00 Intake Total 0 ml Output Total 150 ml Balance -150 ml LABS Lab: Laboratory Tests Test 08/04/21 12:03 08/04/21 12:05 08/04/21 12:08 Urine Collection Type Void Urine Color Yellow Urine Clarity Clear Urine pH 7.5 (<5.0-8.0) Urine Specific [place] <=1.005 (1.000-1.030) Urine Protein Negative mg/dL (NEG-TRACE) Urine Glucose (UA) Negative mg/dL (NEG) Urine Ketones (Stick) Negative mg/dL (NEG) Urine Blood Negative (NEG) Urine Nitrite Negative (NEG) Urine Bilirubin Negative (NEG) Urine Urobilinogen Dipstick 0.2 mg/dL (0.2 mg/dL) Urine Leukocyte Esterase Trace (NEG) Urine RBC Occ /HPF (0-2) Urine WBC 5-10 /HPF (0-4) Urine Bacteria Few /HPF (0-FEW) SARS-CoV-2 Antigen (Rapid) Positive (NEGATIVE) *A White Blood Count 10.2 x10^3/uL (4.0-11.0) Red Blood Count 3.31 x10^6/uL (4.30-5.70) L Hemoglobin 10.8 g/dL (13.0-17.5) L Hematocrit 32.2 % (39.0-53.0) L Mean Corpuscular Volume 97 fL (79-100) Mean Corpuscular Hemoglobin 33 pg (25-35) Mean Corpuscular Hemoglobin Concent 33 g/dL (31-37) Red Cell Distribution Width 13.2 % (11.5-14.5) Platelet Count 201 x10^3/uL (140-400) Neutrophils (%) (Auto) 76 % (31-73) H Lymphocytes (%) (Auto) 14 % (24-48) L Monocytes (%) (Auto) 7 % (0-9) Eosinophils (%) (Auto) 2 % (0-3) Basophils (%) (Auto) 1 % (0-3) Neutrophils # (Auto) 7.8 x10^3/uL (1.8-7.7) H Lymphocytes # (Auto) 1.4 x10^3/uL (1.0-4.8) Monocytes # (Auto) 0.7 x10^3/uL (0.0-1.1) Eosinophils # (Auto) 0.2 x10^3/uL (0.0-0.7) Basophils # (Auto) 0.1 x10^3/uL (0.0-0.2) Sodium Level 138 mmol/L (136-145) Potassium Level 4.1 mmol/L (3.5-5.1) Chloride Level 104 mmol/L (98-107) Carbon Dioxide Level 26 mmol/L (21-32) Anion Gap 8 (6-14) Blood Urea Nitrogen 41 mg/dL (8-26) H Creatinine 1.3 mg/dL (0.7-1.3) Estimated GFR (Cockcroft-Gault) 52.9 BUN/Creatinine Ratio 32 (6-20) H Glucose Level 113 mg/dL (70-99) H Calcium Level 8.5 mg/dL (8.5-10.1) Magnesium Level 2.0 mg/dL (1.8-2.4) Total Bilirubin 0.4 mg/dL (0.2-1.0) Aspartate Amino Transferase (AST) 28 U/L (15-37) Alanine Aminotransferase (ALT) 30 U/L (16-63) Alkaline Phosphatase 80 U/L (46-116) Creatine Kinase 110 U/L (39-308) Creatine Kinase MB (Mass) 2.3 ng/mL (0.0-3.6) Creatine Kinase MB Relative Index 2.1 % (0-4) Troponin I Quantitative < 0.017 ng/mL (0.000-0.055) Total Protein 6.0 g/dL (6.4-8.2) L Albumin 3.2 g/dL (3.4-5.0) L Albumin/Globulin Ratio 1.1 (1.0-1.7) Laboratory Tests 08/04/21 12:08 Laboratory Tests 08/04/21 12:08 ASSESSMENT/PLAN ASSESSMENT/PLAN 1. Viral syndrome with covid-19: vaccinated with moderna on 01/2021 2. Traumatic mechanical fall: possibly due to weakness 3. Comminuted intertrochanteric fracture of the right proximal femur. 4. CAD: stents about 3 yrs ago. clinically stable 5. HTN: controlled 6. HLP 7. COPD: stable 8. Hx of TIA Recommendations 1. Resume ASA and plavix and secondary prevention measures post op 2. Continue toprol preop 3. Surgery planned this evening. Low to moderate risk for perioperative CV events for noncardiac surgery 4. He had TTE early this yr and will try to obtain records. BLAKE GUZMAN APRN Aug 05, 2021 11:01
[2021-08-05 11:14] LABS: BASO % 0 % (0-3); EOS % 0 % (0-3); HEMOGLOBIN 10.3 g/dL (13.0-17.5); LYMPH # 0.6 x10^3/uL (1.0-4.8); LYMPH % 6 % (24-48); MEAN CORPUSCULAR HEMOGLOBIN 33 pg (25-35); MEAN CORPUSCULAR HGB CONC 34 g/dL (31-37); MEAN CORPUSCULAR VOLUME 96 fL (79-100); MONO % 9 % (0-9); NEUT # 9.7 x10^3/uL (1.8-7.7); NEUT % 85 % (31-73); PLATELET COUNT 163 x10^3/uL (140-400); RED BLOOD COUNT 3.12 x10^6/uL (4.30-5.70); RED CELL DISTRIBUTION WIDTH 13.8 % (11.5-14.5); WHITE BLOOD COUNT 11.4 x10^3/uL (4.0-11.0)
[2021-08-05 11:34] LABS: CALCIUM 8.2 mg/dL (8.5-10.1); GFR 71.5; POTASSIUM 4.2 mmol/L (3.5-5.1)
--- NOTE | 2021-08-05 11:34 | NUR ---
SW following. Discussed with RN, pt from home with , room air, NPO. COVID-19 positive (pt is vaccinated). Cardiology and Ortho following. Surgery planned for 1800 today. SW will continue to follow.
[2021-08-05] MEDS ORDERED: fentaNYL PF VIAL 100 MCG/2 ML VIAL IVP PRN ×2 (13:30)
[2021-08-05] MEDS ORDERED: MORPHINE SULFATE 2 MG/ML INJ. IVP PRN (13:30)
[2021-08-05] MEDS ORDERED: HYDROmorphone 2 MG/ML VIAL IVP PRN (13:30)
[2021-08-05] MEDS ORDERED: PROCHLORPERAZINE 10 MG/2 ML VIAL. IVP PRN (13:30)
[2021-08-05] MEDS ORDERED: IV RINGERS,LACTATED 1000ML 1,000 ML IV SCH (13:30)
[2021-08-05] MEDS: ENOXAPARIN 40 MG/0.4 ML SYRINGE. SQ SCH (14:00)
--- NOTE | 2021-08-05 15:30 | PDOC ---
[facility] PROGRESS NOTE Date of Service DOS: DATE: 08/05/21 TIME: 15:27 Chief Complaint Chief Complaint Mechanical fall at home, accidental Acute Comminuted intertrochanteric fracture of the right proximal femur. Covid POS screen in ER, minimal symptoms Essential hypertension remote tobacco abuse HX Anterior stabilization and interbody fusion C5-C7 Plan: admit consult ortho npo o2 support prn iv pain control dvt prophylaxis SQ LOVENOX May need SNF/ PT/OT History of Present Illness History of Present Illness 81 yr old male who fell today , outside his home, denies syncope, just fell on uneven ground / x ray c/w right hip fax, he has noted a mild cough and Covid 19 screen is pos in ER today denies chest pain, fever, abdominal pain, head or neck injury hgb 10.8 cr 1.3 , remote smoker has hx CAD with stents, remote// hx Anterior stabilization and interbody fusion C5-C7 EKG -133 NSR at 64bpm, NO ST elevation, QRS 92ms, QT/QTc 386/402ms,/ denies any numbness weakness or tingling of his arms or legs. impression Mechanical fall at home, accidental / Acute Comminuted intertrochanteric fracture of the right proximal femur. /Covid POS screen in ER, minimal symptoms Essential hypertension 08/05/2021: Afebrile, breathing room air. Surgery tentatively planned for this evening. Pain controlled with medications. Following surgery opiates began to work with PT for eventual SNU discharge. Vitals/I&O Vitals/I&O: Vital Signs Date Time Temp Pulse Resp B/P (MAP) Pulse Ox O2 Delivery O2 Flow Rate FiO2 08/05/21 15:01 95 Room Air 08/05/21 15:00 98.0 89 18 152/75 (100) 98.0 08/05/21 14:57 3.0 I & O 08/04/21 08/04/21 08/05/21 15:00 23:00 07:00 Intake Total 0 ml Output Total 150 ml Balance -150 ml Physical Exam General: Alert, Oriented X3, Cooperative, No acute distress Heart: Regular rate (SR), Normal S1, Normal S2, Other (3/6 systolic murmur to WILLY border) Lungs: Clear Abdomen: Soft, No tenderness Extremities: No cyanosis, No edema Skin: No breakdown, No significant lesion Labs Labs: Laboratory Tests Test 08/05/21 10:55 White Blood Count 11.4 x10^3/uL (4.0-11.0) Red Blood Count 3.12 x10^6/uL (4.30-5.70) Hemoglobin 10.3 g/dL (13.0-17.5) Hematocrit 30.0 % (39.0-53.0) Mean Corpuscular Volume 96 fL (79-100) Mean Corpuscular Hemoglobin 33 pg (25-35) Mean Corpuscular Hemoglobin Concent 34 g/dL (31-37) Red Cell Distribution Width 13.8 % (11.5-14.5) Platelet Count 163 x10^3/uL (140-400) Neutrophils (%) (Auto) 85 % (31-73) Lymphocytes (%) (Auto) 6 % (24-48) Monocytes (%) (Auto) 9 % (0-9) Eosinophils (%) (Auto) 0 % (0-3) Basophils (%) (Auto) 0 % (0-3) Neutrophils # (Auto) 9.7 x10^3/uL (1.8-7.7) Lymphocytes # (Auto) 0.6 x10^3/uL (1.0-4.8) Monocytes # (Auto) 1.0 x10^3/uL (0.0-1.1) Eosinophils # (Auto) 0.0 x10^3/uL (0.0-0.7) Basophils # (Auto) 0.0 x10^3/uL (0.0-0.2) Sodium Level 136 mmol/L (136-145) Potassium Level 4.2 mmol/L (3.5-5.1) Chloride Level 105 mmol/L (98-107) Carbon Dioxide Level 23 mmol/L (21-32) Anion Gap 8 (6-14) Blood Urea Nitrogen 24 mg/dL (8-26) Creatinine 1.0 mg/dL (0.7-1.3) Estimated GFR (Cockcroft-Gault) 71.5 Glucose Level 115 mg/dL (70-99) Calcium Level 8.2 mg/dL (8.5-10.1) Assessment and Plan Assessmemt and Plan Problems Medical Problems: (1) COVID-19 Status: Acute (2) Fall Status: Acute (3) Intertrochanteric fracture of right hip Status: Acute (4) UTI (urinary tract infection) Status: Acute Comment Review of Relevant I have reviewed the following items [email or web address] (where applicable) has been applied. Medications: Current Medications Medications (Trade) Dose Ordered Sig/Cynthia Route PRN Reason Start Time Stop Time Status Last Admin Dose Admin Ceftriaxone Sodium (Rocephin) 1 gm 1X ONCE IVP 08/04/21 17:00 08/04/21 17:01 DC 08/04/21 21:49 Fentanyl Citrate (Fentanyl 2ml Vial) 50 mcg PRN Q2HR PRN IVP PAIN 08/05/21 15:00 08/05/21 15:01 Justifications for Admission General Conditions Other justification for admit: acute right hip fracture Other Justification YOANDY FRANCIS MD Aug 05, 2021 15:30
[2021-08-05] MEDS ORDERED: METOPROLOL SUCC 24HR ER 25 MG TAB.ER.24H. PO ONE (16:00)
[2021-08-05] MEDS ORDERED: ONDANSETRON PF 4 MG/2 ML VIAL. ONE (18:11)
[2021-08-05] MEDS ORDERED: PROPOFOL 10 MG/ML (20ML) VIAL. IV ONE (18:11)
[2021-08-05] MEDS ORDERED: LIDOCAINE 2% PF 5 ML VIAL. ONE (18:11)
[2021-08-05] MEDS ORDERED: DEXAMETHASONE SOD PHOS 4 MG/ML VIAL ONE ×2 (18:11)
[2021-08-05] MEDS ORDERED: PHENYLEPHRINE in 0.9% NACL PF 1 MG/10 ML SYRINGE. IV ONE (18:29)
[2021-08-05] MEDS ORDERED: ePHEDrine PF IN SALINE 50 MG/10 ML SYRINGE. IV ONE (18:34)
[2021-08-05] MEDS ORDERED: fentaNYL PF VIAL 100 MCG/2 ML VIAL ONE (18:43)
[2021-08-05] MEDS ORDERED: SEVOFLURANE 31 TO 60 MINUTES. IH ONE (19:08)
--- NOTE | 2021-08-05 19:22 | PDOC4 ---
OPERATIVE NOTE: DATE OF PROCEDURE: August 05, 2021 PROCEDURE: Right hip cephalomedullary nailing. PREOPERATIVE DIAGNOSIS: Right intertrochanteric hip fracture. POSTOPERATIVE DIAGNOSIS: Same SURGEON: Silvina Scott DO REGISTERED DENTAL ASSISTANT: None EBL: <100cc SPECIMEN: None ANESTHESIA: General POSITION: Supine on the hip fracture table. COMPLICATIONS: None. IMPLANT SPECIFICATIONS: [employer] TriGen nail system was used. See OR record for exact sizing A Synthes titanium fixation nail was used with an 11 mm x 130-degree x 170 mm nail with a 100 mm helical blade a 5 mm x 42 mm distal locking screw. DESCRIPTION OF PROCEDURE: The patient was seen in the preoperative holding area. The site was marked. Consent was verified. We reviewed the risks, benefits, possible complications, and rationale behind the surgery. The patient received preoperative antibiotics and was wheeled back to the operating room. Once in the operating room, the department of anesthesia admi nistered antibiotics as well as general anesthetic and maintained control of the airway. Then positioned on the fracture table in the usual fashion. Time out was observed. A closed reduction was performed of the hip with traction, and internal rotation. Sterile prep and drape was performed of the hip in the usual fashion. Fluoroscopy was used to aid in the surgery. At this point, a 6 cm incision was made over the lateral aspect of the hip just proximal to the greater trochanter. Soft dissection was carried out sharply down to the tip of the greater trochanter. A pin was placed in the tip of the greater trochanter and advanced into the femoral canal. It was then overreamed with the entry reamer. The nail was then selected and placed into the femur with the insertion guide. Its position was confirmed on AP and lateral fluoroscopy. At this point, with the outrigger and aiming arm as a guide, a 6 cm incision was made distally along the shaft of the femur. Soft tissue dissection was carried out sharply down to the lateral cortex of the bone. The aiming arm was advanced to the lateral cortex, and a guide pin was placed up through the femoral neck and into the femoral head. Its position was confirmed on AP and lateral fluoroscopy, and its length was measured. The cortical reamer followed by the conical reamer were used. Once the length of the guide pin was established and overreamed, the final head screw was impacted and fully seated. The head screw was then locked, and compression was placed through the device. At this point, the guide was then used for a distal locking screw, and this was placed using AP and lateral fluoroscopy as an aid. The insertion guide was then removed, and final pictures were taken. Reduction was acceptable. Copious irrigation was run through the wounds, and they were suctioned dry. Layered closure was performed. A large bulky dressing was applied, and anesthesia was reversed. The patient was transferred to postop in apparent stable condition. DISPOSITION: The patient will remain in the hospital and begin on physical therapy protocol. PROGNOSIS: Guarded secondary to advance age and overall medical status, as well as known comorbidities with hip fractures in the elderly. SILVINA SCOTT DO Aug 05, 2021 19:22
--- NOTE | 2021-08-05 19:22 | PDOC2 ---
Consult: Patient seen evaluated today just prior to surgery. He was admitted within the last 24 hours regarding an injury that occurred to his right hip after a ground- level fall. Denies any syncope or constitutional symptoms of cardiac or neurologic event. Complains of moderate pain in the right hip. PAST MEDICAL/SURGICAL/FAMILY HISTORY/SOCIAL HISTORY/ AND ROS were reviewed on intake to include multiple system review. Copied to EHR. EXAM: -------- Well-nourished well-developed patient General: No acute distress. HEENT: Normocephalic. Respiratory: Respirations are non-labored. Cardiovascular: No edema. Abdomen: soft Neurologic: Alert. Psychiatric: Cooperative. Right hip reveals positive Stinchfield and logroll. He has pain with any passive range of motion. Neurocirculatory status is intact distally. X-rays reviewed from emergency department visit which reveal a displaced intertrochanteric hip fracture ASSESSMENT & PLAN: Right hip intertrochanteric femoral neck fracture I discussed with the patient treatment options. We discussed options both surgical and nonsurgical (medication, injection, therapy, lifestyle modification, assistive devices and other modalities). We also discussed pros and cons of each. Greater than 30 minutes was spent with the patient with more than 50 percent of the time in discussion with regards to treatment and medical decision-making. Risk, benefits, alternative treatments, if any, and possible complications of surgery were discussed in detail, including, but not limited to: infection, scar, blood loss, chronic pain, need for reoperation, injury to nerve, artery or vein, blood clots, implant failure if used in procedure, and possible morbidity and mortality. Discussion of anticipated outcome, the post- operative course, and the potential rehab needs. Proceed with right hip cephalomedullary nail. SILVINA HILTON DO Aug 05, 2021 19:22
[2021-08-05] MEDS ORDERED: TV=62ml MORPHINE 5 MG, KETOROLAC 30 MG, ROPIV, EPI INT ART ONE (21:11)
[2021-08-05] MEDS: ASPIRIN ENTERIC COATED 81 MG TABLET.DR. PO SCH (21:31)
[2021-08-05] MEDS: ATORVASTATIN CALCIUM 20 MG TABLET PO SCH (21:32)
[2021-08-05] MEDS: METOPROLOL SUCC 24HR ER 25 MG TAB.ER.24H. PO SCH (21:32)
[2021-08-06] MEDS: fentaNYL PF VIAL 100 MCG/2 ML VIAL IVP PRN ×4 (00:24→18:38)
[2021-08-06 02:54] VITALS: BP 129/65
[2021-08-06] MEDS: IV NORMAL SALINE 1000ML BAG 1,000 ML IV SCH ×2 (03:00→15:58)
[2021-08-06 07:00] VITALS: BP 105/46
--- NOTE | 2021-08-06 10:05 | PDOC ---
PROGRESS NOTES Date of Service: DATE: 08/06/21 TIME: 10:05 Chief Complaint Chief Complaint Mechanical fall at home, accidental Acute Comminuted intertrochanteric fracture of the right proximal femur. Covid POS screen in ER, minimal symptoms Essential hypertension remote tobacco abuse HX Anterior stabilization and interbody fusion C5-C7 Plan: admit FOLLOWING ortho o2 support prn iv pain control dvt prophylaxis SQ LOVENOX May need SNF/ PT/OT D/W RN History of Present Illness History of Present Illness 81 yr old male who fell today , outside his home, denies syncope, just fell on uneven ground / x ray c/w right hip fax, he has noted a mild cough and Covid 19 screen is pos in ER today denies chest pain, fever, abdominal pain, head or neck injury hgb 10.8 cr 1.3 , remote smoker has hx CAD with stents, remote// hx Anterior stabilization and interbody fusion C5-C7 EKG -133 NSR at 64bpm, NO ST elevation, QRS 92ms, QT/QTc 386/402ms,/ denies any numbness weakness or tingling of his arms or legs. impression Mechanical fall at home, accidental / Acute Comminuted intertrochanteric fracture of the right proximal femur. /Covid POS screen in ER, minimal symptoms Essential hypertension 08/05/2021: Afebrile, breathing room air. Surgery tentatively planned for this evening. Pain controlled with medications. Following surgery opiates began to work with PT for eventual SNU discharge. Vitals Vitals Vital Signs Date Time Temp Pulse Resp B/P (MAP) Pulse Ox O2 Delivery O2 Flow Rate FiO2 08/06/21 08:30 Room Air 08/06/21 07:00 97.8 78 18 105/46 (65) 97 97.8 08/05/21 19:41 6 Physical Exam General: Alert, Oriented X3, Cooperative, No acute distress Heart: Regular rate (SR), Normal S1, Normal S2, Other (3/6 systolic murmur to WILLY border) Lungs: Clear Abdomen: Normal bowel sounds, Soft, No tenderness Extremities: No cyanosis, No edema Skin: No breakdown, No significant lesion Labs LABS Laboratory Tests Test 08/05/21 10:55 White Blood Count 11.4 x10^3/uL (4.0-11.0) Red Blood Count 3.12 x10^6/uL (4.30-5.70) Hemoglobin 10.3 g/dL (13.0-17.5) Hematocrit 30.0 % (39.0-53.0) Mean Corpuscular Volume 96 fL (79-100) Mean Corpuscular Hemoglobin 33 pg (25-35) Mean Corpuscular Hemoglobin Concent 34 g/dL (31-37) Red Cell Distribution Width 13.8 % (11.5-14.5) Platelet Count 163 x10^3/uL (140-400) Neutrophils (%) (Auto) 85 % (31-73) Lymphocytes (%) (Auto) 6 % (24-48) Monocytes (%) (Auto) 9 % (0-9) Eosinophils (%) (Auto) 0 % (0-3) Basophils (%) (Auto) 0 % (0-3) Neutrophils # (Auto) 9.7 x10^3/uL (1.8-7.7) Lymphocytes # (Auto) 0.6 x10^3/uL (1.0-4.8) Monocytes # (Auto) 1.0 x10^3/uL (0.0-1.1) Eosinophils # (Auto) 0.0 x10^3/uL (0.0-0.7) Basophils # (Auto) 0.0 x10^3/uL (0.0-0.2) Sodium Level 136 mmol/L (136-145) Potassium Level 4.2 mmol/L (3.5-5.1) Chloride Level 105 mmol/L (98-107) Carbon Dioxide Level 23 mmol/L (21-32) Anion Gap 8 (6-14) Blood Urea Nitrogen 24 mg/dL (8-26) Creatinine 1.0 mg/dL (0.7-1.3) Estimated GFR (Cockcroft-Gault) 71.5 Glucose Level 115 mg/dL (70-99) Calcium Level 8.2 mg/dL (8.5-10.1) Assessment and Plan Assessmemt and Plan Problems Medical Problems: (1) COVID-19 Status: Acute (2) Fall Status: Acute (3) Intertrochanteric fracture of right hip Status: Acute (4) UTI (urinary tract infection) Status: Acute Comment Review of Relevant I have reviewed the following items raimundo (where applicable) has been applied. Labs Laboratory Tests Test 08/04/21 12:03 08/04/21 12:05 08/04/21 12:08 08/05/21 10:55 Urine Collection Type Void Urine Color Yellow Urine Clarity Clear Urine pH 7.5 (<5.0-8.0) Urine Specific [place] <=1.005 (1.000-1.030) Urine Protein Negative mg/dL (NEG-TRACE) Urine Glucose (UA) Negative mg/dL (NEG) Urine Ketones (Stick) Negative mg/dL (NEG) Urine Blood Negative (NEG) Urine Nitrite Negative (NEG) Urine Bilirubin Negative (NEG) Urine Urobilinogen Dipstick 0.2 mg/dL (0.2 mg/dL) Urine Leukocyte Esterase Trace (NEG) Urine RBC Occ /HPF (0-2) Urine WBC 5-10 /HPF (0-4) Urine Bacteria Few /HPF (0-FEW) SARS-CoV-2 Antigen (Rapid) Positive (NEGATIVE) White Blood Count 10.2 x10^3/uL (4.0-11.0) 11.4 x10^3/uL (4.0-11.0) Red Blood Count 3.31 x10^6/uL (4.30-5.70) 3.12 x10^6/uL (4.30-5.70) Hemoglobin 10.8 g/dL (13.0-17.5) 10.3 g/dL (13.0-17.5) Hematocrit 32.2 % (39.0-53.0) 30.0 % (39.0-53.0) Mean Corpuscular Volume 97 fL (79-100) 96 fL (79-100) Mean Corpuscular Hemoglobin 33 pg (25-35) 33 pg (25-35) Mean Corpuscular Hemoglobin Concent 33 g/dL (31-37) 34 g/dL (31-37) Red Cell Distribution Width 13.2 % (11.5-14.5) 13.8 % (11.5-14.5) Platelet Count 201 x10^3/uL (140-400) 163 x10^3/uL (140-400) Neutrophils (%) (Auto) 76 % (31-73) 85 % (31-73) Lymphocytes (%) (Auto) 14 % (24-48) 6 % (24-48) Monocytes (%) (Auto) 7 % (0-9) 9 % (0-9) Eosinophils (%) (Auto) 2 % (0-3) 0 % (0-3) Basophils (%) (Auto) 1 % (0-3) 0 % (0-3) Neutrophils # (Auto) 7.8 x10^3/uL (1.8-7.7) 9.7 x10^3/uL (1.8-7.7) Lymphocytes # (Auto) 1.4 x10^3/uL (1.0-4.8) 0.6 x10^3/uL (1.0-4.8) Monocytes # (Auto) 0.7 x10^3/uL (0.0-1.1) 1.0 x10^3/uL (0.0-1.1) Eosinophils # (Auto) 0.2 x10^3/uL (0.0-0.7) 0.0 x10^3/uL (0.0-0.7) Basophils # (Auto) 0.1 x10^3/uL (0.0-0.2) 0.0 x10^3/uL (0.0-0.2) Sodium Level 138 mmol/L (136-145) 136 mmol/L (136-145) Potassium Level 4.1 mmol/L (3.5-5.1) 4.2 mmol/L (3.5-5.1) Chloride Level 104 mmol/L (98-107) 105 mmol/L (98-107) Carbon Dioxide Level 26 mmol/L (21-32) 23 mmol/L (21-32) Anion Gap 8 (6-14) 8 (6-14) Blood Urea Nitrogen 41 mg/dL (8-26) 24 mg/dL (8-26) Creatinine 1.3 mg/dL (0.7-1.3) 1.0 mg/dL (0.7-1.3) Estimated GFR (Cockcroft-Gault) 52.9 71.5 BUN/Creatinine Ratio 32 (6-20) Glucose Level 113 mg/dL (70-99) 115 mg/dL (70-99) Calcium Level 8.5 mg/dL (8.5-10.1) 8.2 mg/dL (8.5-10.1) Magnesium Level 2.0 mg/dL (1.8-2.4) Total Bilirubin 0.4 mg/dL (0.2-1.0) Aspartate Amino Transf (AST/SGOT) 28 U/L (15-37) Alanine Aminotransferase (ALT/SGPT) 30 U/L (16-63) Alkaline Phosphatase 80 U/L (46-116) Creatine Kinase 110 U/L (39-308) Creatine Kinase MB (Mass) 2.3 ng/mL (0.0-3.6) Creatine Kinase MB Relative Index 2.1 % (0-4) Troponin I Quantitative < 0.017 ng/mL (0.000-0.055) Total Protein 6.0 g/dL (6.4-8.2) Albumin 3.2 g/dL (3.4-5.0) Albumin/Globulin Ratio 1.1 (1.0-1.7) Laboratory Tests Test 08/05/21 10:55 White Blood Count 11.4 x10^3/uL (4.0-11.0) Red Blood Count 3.12 x10^6/uL (4.30-5.70) Hemoglobin 10.3 g/dL (13.0-17.5) Hematocrit 30.0 % (39.0-53.0) Mean Corpuscular Volume 96 fL (79-100) Mean Corpuscular Hemoglobin 33 pg (25-35) Mean Corpuscular Hemoglobin Concent 34 g/dL (31-37) Red Cell Distribution Width 13.8 % (11.5-14.5) Platelet Count 163 x10^3/uL (140-400) Neutrophils (%) (Auto) 85 % (31-73) Lymphocytes (%) (Auto) 6 % (24-48) Monocytes (%) (Auto) 9 % (0-9) Eosinophils (%) (Auto) 0 % (0-3) Basophils (%) (Auto) 0 % (0-3) Neutrophils # (Auto) 9.7 x10^3/uL (1.8-7.7) Lymphocytes # (Auto) 0.6 x10^3/uL (1.0-4.8) Monocytes # (Auto) 1.0 x10^3/uL (0.0-1.1) Eosinophils # (Auto) 0.0 x10^3/uL (0.0-0.7) Basophils # (Auto) 0.0 x10^3/uL (0.0-0.2) Sodium Level 136 mmol/L (136-145) Potassium Level 4.2 mmol/L (3.5-5.1) Chloride Level 105 mmol/L (98-107) Carbon Dioxide Level 23 mmol/L (21-32) Anion Gap 8 (6-14) Blood Urea Nitrogen 24 mg/dL (8-26) Creatinine 1.0 mg/dL (0.7-1.3) Estimated GFR (Cockcroft-Gault) 71.5 Glucose Level 115 mg/dL (70-99) Calcium Level 8.2 mg/dL (8.5-10.1) Microbiology 08/05/21 Urine Culture - Final, Complete Medications Current Medications Sodium Chloride 1,000 ml @ 1,000 mls/hr 1X ONCE IV Last administered on 08/04/21at 12:15; Start 08/04/21 at 11:45; Stop 08/04/21 at 12:44; Status DC Morphine Sulfate (Morphine Sulfate) 4 mg 1X ONCE IVP Last administered on 08/04/21at 11:51; Start 08/04/21 at 11:45; Stop 08/04/21 at 11:46; Status DC Morphine Sulfate (Morphine Sulfate) 4 mg 1X ONCE IVP Last administered on 08/04/21at 13:23; Start 08/04/21 at 13:00; Stop 08/04/21 at 13:01; Status DC Ondansetron HCl (Zofran) 4 mg PRN Q8HRS PRN IVP NAUSEA/VOMITING; Start 08/04/21 at 13:30; Stop 08/05/21 at 17:30; Status DC Fentanyl Citrate (Fentanyl 2ml Vial) 50 mcg Q2HR PRN IVP PAIN Last administered on 08/05/21at 12:11; Start 08/04/21 at 13:30; Stop 08/05/21 at 17:30; Status DC Sodium Chloride (Normal Saline Flush) 3 ml QSHIFT PRN IV AFTER MEDS AND BLOOD DRAWS; Start 08/04/21 at 13:30 Sodium Chloride 1,000 ml @ 80 mls/hr [id number] IV Last administered on 08/06/21at 03:00; Start 08/04/21 at 13:30 Ondansetron HCl (Zofran) 4 mg PRN Q4HRS PRN IV NAUSEA/VOMITING; Start 08/04/21 at 13:30 Acetaminophen (Tylenol) 650 mg PRN Q4HRS PRN PO TEMP OVER 100.4F OR MILD PAIN; Start 08/04/21 at 13:30 Al Hydroxide/Mg Hydroxide (Mylanta Plus Xs) 30 ml PRN DAILY PRN PO HEARTBURN / GAS; Start 08/04/21 at 13:30 Sodium Monofluorophosphate (Fleet Adult) 133 ml PRN DAILY PRN CA CONSTIPATION; Start 08/04/21 at 13:30 Docusate Sodium (Colace) 100 mg PRN BID PRN PO HARD STOOLS; Start 08/04/21 at 13:30 Albuterol Sulfate (Ventolin Neb Soln) 2.5 mg PRN Q4HRS PRN NEB SHORTNESS OF BREATH; Start 08/04/21 at 13:30 Guaifenesin (Robitussin) 200 mg PRN Q4HRS PRN PO COUGH; Start 08/04/21 at 13:30 Hydromorphone HCl (Dilaudid) 0.4 mg PRN Q2HRS PRN IV SEVERE PAIN 7-10 Last administered on 08/04/21at 21:50; Start 08/04/21 at 13:30 Enoxaparin Sodium (Lovenox 40mg Syringe) 40 mg Q24H SQ ; Start 08/04/21 at 14:00 Hydromorphone HCl (Dilaudid) 1 mg 1X ONCE IVP Last administered on 08/04/21at 13:55; Start 08/04/21 at 14:00; Stop 08/04/21 at 14:01; Status DC Ceftriaxone Sodium (Rocephin) 1 gm 1X ONCE IVP Last administered on 08/04/21at 21:49; Start 08/04/21 at 17:00; Stop 08/04/21 at 17:01; Status DC Info (FLU VACCINE SCREEN per RX) 1 each 1X ONCE MC ; Start 08/04/21 at 18:30; Stop 08/04/21 at 18:31; Status Cancel Cefazolin Sodium/ Dextrose 50 ml @ 100 mls/hr 1X ONCE IV ; Start 08/05/21 at 06:00; Stop 08/05/21 at 06:29; Status DC Aspirin (Ecotrin) 81 mg QHS PO Last administered on 08/05/21at 21:31; Start 08/05/21 at 21:00 Atorvastatin Calcium (Lipitor) 20 mg QHS PO Last administered on 08/05/21at 21:32; Start 08/05/21 at 21:00 Metoprolol Succinate (Toprol Xl) 25 mg QHS PO Last administered on 08/05/21at 21:32; Start 08/05/21 at 21:00 Fentanyl Citrate (Fentanyl 2ml Vial) 25 mcg PRN Q5MIN PRN IVP MILD PAIN 1-3; Start 08/05/21 at 13:30; Stop 08/06/21 at 13:29 Fentanyl Citrate (Fentanyl 2ml Vial) 50 mcg PRN Q5MIN PRN IVP MODERATE PAIN 4-6 Last administered on 08/05/21at 21:33; Start 08/05/21 at 13:30; Stop 08/06/21 at 13:29 Morphine Sulfate (Morphine Sulfate) 1 mg PRN Q10MIN PRN IVP SEVERE PAIN 7-10; Start 08/05/21 at 13:30; Stop 08/06/21 at 13:29 Ringer's Solution 1,000 ml @ 30 mls/hr Q24H IV ; Start 08/05/21 at 13:30; Stop 08/06/21 at 01:29; Status DC Hydromorphone HCl (Dilaudid) 0.5 mg PRN Q10MIN PRN IVP SEVERE PAIN 7-10, 2nd CHOICE; Start 08/05/21 at 13:30; Stop 08/06/21 at 13:29 Prochlorperazine Edisylate (Compazine) 5 mg PACU PRN PRN IVP NAUSEA, MRX1; Start 08/05/21 at 13:30; Stop 08/06/21 at 13:29 Fentanyl Citrate (Fentanyl 2ml Vial) 50 mcg PRN Q2HR PRN IVP PAIN Last administered on 08/06/21at 00:24; Start 08/05/21 at 15:00 Metoprolol Succinate (Toprol Xl) 25 mg 1X ONCE PO Last administered on 08/05/21at 16:00; Start 08/05/21 at 16:00; Stop 08/05/21 at 17:31; Status DC Morphine Sulfate 5 mg/Ketorolac Tromethamine 30 mg/Ropivacaine 60 ml/Epinephrine HCl 0.5 mg/ Miscellaneous 63 ml @ 63 mls/hr 1X PERIOP ONCE INT ART Last administered on 08/05/21at 21:14; Start 08/05/21 at 21:11; Stop 08/05/21 at 22:10; Status DC Propofol (Diprivan) 200 mg STK-MED ONCE IV ; Start 08/05/21 at 18:11; Stop 08/05/21 at 18:11; Status DC Lidocaine HCl (Lidocaine Pf 2% Vial) 5 ml STK-MED ONCE .ROUTE ; Start 08/05/21 at 18:11; Stop 08/05/21 at 18:11; Status DC Ondansetron HCl (Zofran) 4 mg STK-MED ONCE .ROUTE ; Start 08/05/21 at 18:11; Stop 08/05/21 at 18:11; Status DC Dexamethasone Sodium Phosphate (Decadron) 4 mg STK-MED ONCE .ROUTE ; Start 08/05/21 at 18:11; Stop 08/05/21 at 18:11; Status DC Dexamethasone Sodium Phosphate (Decadron) 4 mg STK-MED ONCE .ROUTE ; Start 08/05/21 at 18:11; Stop 08/05/21 at 18:11; Status DC Phenylephrine HCl (PHENYLEPHRINE in 0.9% NACL PF) 1 mg STK-MED ONCE IV ; Start 08/05/21 at 18:29; Stop 08/05/21 at 18:29; Status DC Ephedrine Sulfate (ePHEDrine PF IN SALINE SYRINGE) 50 mg STK-MED ONCE IV ; Start 08/05/21 at 18:34; Stop 08/05/21 at 18:34; Status DC Fentanyl Citrate (Fentanyl 2ml Vial) 100 mcg STK-MED ONCE .ROUTE ; Start 08/05/21 at 18:43; Stop 08/05/21 at 18:43; Status DC Sevoflurane (Ultane) 30 ml STK-MED ONCE IH ; Start 08/05/21 at 19:08; Stop 08/05/21 at 19:08; Status DC Active Scripts Active Reported Atorvastatin Calcium 20 Mg Tablet 1 Tab PO DAILY Metoprolol Succinate ( Xl ) (Metoprolol Succinate) 25 Mg Tab.er.24h 1 Tab PO QHS Topiramate 25 Mg Tablet 1 Tab PO QHS 30 Days Clopidogrel (Clopidogrel Bisulfate) 75 Mg Tablet 1 Tab PO QHS Famotidine 40 Mg Tablet 40 Mg PO HS Gabapentin (Gabapentin) 100 Mg Capsule 100 Mg PO QHS Tramadol Hcl 50 Mg Tablet 50 Mg PO Q6HRS PRN [prevagen dutasteride] 0.5 Mg PO QHS Aspirin Ec (Aspirin) 81 Mg Tablet.dr 1 Tab PO QHS Vitals/I & O Vital Sign - Last 24 Hours 08/05/21 08/05/21 08/05/21 08/05/21 10:19 10:57 12:11 14:57 Temp 97.7 97.7 Pulse 88 Resp 18 B/P (MAP) 149/62 (91) Pulse Ox 96 95 95 95 O2 Delivery Room Air Room Air Room Air Room Air O2 Flow Rate 3.0 08/05/21 08/05/21 08/05/21 08/05/21 15:00 15:01 15:47 16:00 Temp 98.0 98.0 Pulse 89 89 Resp 18 B/P (MAP) 152/75 (100) 152/75 Pulse Ox 97 95 95 O2 Delivery Room Air Room Air Room Air 08/05/21 08/05/21 08/05/21 08/05/21 19:26 19:26 19:41 19:56 Temp 98.4 98.4 Pulse 106 92 91 Resp 21 B/P (MAP) 169/72 161/62 149/57 Pulse Ox 100 100 94 O2 Delivery Mask Room Air Simple Mask Room Air Simple Mask O2 Flow Rate 6 6 6 08/05/21 08/05/21 08/05/21 08/05/21 20:12 20:30 20:45 21:00 Temp 98.5 98.5 Pulse 93 92 93 88 Resp 18 18 18 B/P (MAP) 137/66 (89) 127/67 (87) 134/62 (86) Pulse Ox 94 95 95 95 O2 Delivery Room Air Room Air Room Air Room Air Simple Mask 08/05/21 08/05/21 08/05/21 08/05/21 21:30 21:32 21:33 22:00 Pulse 92 93 88 Resp 18 18 B/P (MAP) 120/53 (75) 149/57 124/55 (78) Pulse Ox 95 94 95 O2 Delivery Room Air Simple Mask Room Air 08/05/21 08/06/21 08/06/21 08/06/21 22:03 00:24 00:54 02:54 Temp 97.8 97.8 Pulse 82 Resp 18 B/P (MAP) 129/65 (86) Pulse Ox 95 95 98 98 O2 Delivery Room Air 08/06/21 08/06/21 07:00 08:30 Temp 97.8 97.8 Pulse 78 Resp 18 B/P (MAP) 105/46 (65) Pulse Ox 97 O2 Delivery Room Air Room Air Intake and Output 08/05/21 08/05/21 08/06/21 15:00 23:00 07:00 Intake Total 480 ml 1740 ml Output Total 100 ml 300 ml Balance 480 ml 1640 ml -300 ml Justicifation of Admission Dx: Justifications for Admission: Justification of Admission Dx: No ERLIN WRIGHT MD Aug 06, 2021 10:05
--- NOTE | 2021-08-06 10:32 | NUR ---
SW following. Discussed with RN, pt had surgery yesterday, PT/OT to work with pt today. SW trying to determine which SNF facilities still have a COVID unit since pt is COVID-19 positive. SW will continue to follow.
[2021-08-06 11:00] VITALS: BP 105/48
--- NOTE | 2021-08-06 14:40 | NUR ---
This RN spoke with Dr. Scott by telephone to verify post-op orders. Dr. Scott stated pt is FWB and would place orders.
[2021-08-06] MEDS ORDERED: DEXTROSE 50% 25 GM / 50ML DISP.SYRIN. IV PRN (14:45)
[2021-08-06] MEDS ORDERED: POLYETHYLENE GLYCOL 3350 17 GM PACKET. PO PRN (14:45)
[2021-08-06 15:00] VITALS: BP 127/53
[2021-08-06 19:00] VITALS: BP 133/57
[2021-08-06] MEDS: ACETAMINOPHEN 325 MG TABLET. PO PRN (19:52)
[2021-08-06] MEDS: ATORVASTATIN CALCIUM 20 MG TABLET PO SCH (21:33)
[2021-08-06] MEDS: ENOXAPARIN 40 MG/0.4 ML SYRINGE. SQ SCH (21:34)
[2021-08-06] MEDS: ASPIRIN ENTERIC COATED 81 MG TABLET.DR. PO SCH (21:34)
[2021-08-06] MEDS: METOPROLOL SUCC 24HR ER 25 MG TAB.ER.24H. PO SCH (21:34)
[2021-08-06 23:06] VITALS: BP 107/45
[2021-08-07] MEDS: fentaNYL PF VIAL 100 MCG/2 ML VIAL IVP PRN ×3 (01:59→14:49)
[2021-08-07 03:00] VITALS: BP 125/54
[2021-08-07] MEDS ORDERED: MAGNESIUM HYDROXIDE 2,400 MG/30 ML ORAL.SUSP. PO PRN (06:00)
[2021-08-07 07:00] VITALS: BP 144/64
[2021-08-07 08:02] LABS: BASO # 0.1 x10^3/uL (0.0-0.2); BASO % 1 % (0-3); EOS # 0.4 x10^3/uL (0.0-0.7); EOS % 5 % (0-3); HEMATOCRIT 22.2 % (39.0-53.0); HEMOGLOBIN 7.6 g/dL (13.0-17.5); LYMPH # 1.1 x10^3/uL (1.0-4.8); LYMPH % 13 % (24-48); MEAN CORPUSCULAR HEMOGLOBIN 33 pg (25-35); MEAN CORPUSCULAR HGB CONC 34 g/dL (31-37); MEAN CORPUSCULAR VOLUME 98 fL (79-100); MONO # 0.7 x10^3/uL (0.0-1.1); MONO % 8 % (0-9); NEUT # 6.2 x10^3/uL (1.8-7.7); NEUT % 73 % (31-73); PLATELET COUNT 135 x10^3/uL (140-400); RED BLOOD COUNT 2.28 x10^6/uL (4.30-5.70); RED CELL DISTRIBUTION WIDTH 13.8 % (11.5-14.5); WHITE BLOOD COUNT 8.5 x10^3/uL (4.0-11.0)
[2021-08-07] MEDS: ONDANSETRON PF 4 MG/2 ML VIAL. IVP PRN (08:53)
[2021-08-07] MEDS: IV NORMAL SALINE 1000ML BAG 1,000 ML IV SCH ×2 (08:54→20:01)
[2021-08-07] MEDS: SENNOSIDES/DOCUSATE 8.6/50MG TABLET. PO SCH (09:00)
[2021-08-07 11:00] VITALS: BP 146/62
[2021-08-07] MEDS: GABAPENTIN 300 MG CAPSULE. PO SCH ×2 (11:39→21:33)
[2021-08-07] MEDS: traMADol 50 MG TABLET PO PRN ×2 (11:47→21:35)
--- NOTE | 2021-08-07 12:21 | NUR ---
SW following. Discussed with RN, pt from home with , room air, COVID-19 positive. Therapy recommending SNF. SW spoke with pt's RE discharge planning. Pt's agreeable to SNF and verbalized understanding that pt would need a COVID unit due to testing positive. [facility]able to [facility]. SW phoned and faxed referral, awaiting acceptance decision. SW will continue to follow.
--- NOTE | 2021-08-07 12:25 | PDOC ---
[facility] PROGRESS NOTE Date of Service DOS: DATE: 08/07/21 TIME: 12:19 Chief Complaint Chief Complaint Acute fall Acute Comminuted intertrochanteric fracture of the right proximal femur Covid-19 Essential hypertension Remote Tobacco abuse UTI ASHD CAD History of Present Illness History of Present Illness 08/07/2021: Pt seen and examined. Discussed with RN. Chart reviewed. Post-op day 2. Wound dressing clean, dry, intact. Pt tolerating po foods well. 08/05/2021: Afebrile, breathing room air. Surgery tentatively planned for this evening. Pain controlled with medications. Following surgery opiates began to work with PT for eventual SNU discharge. Vitals/I&O Vitals/I&O: Vital Signs Date Time Temp Pulse Resp B/P (MAP) Pulse Ox O2 Delivery O2 Flow Rate FiO2 08/07/21 11:47 Room Air 08/07/21 07:00 98.0 82 18 144/64 (90) 98 98.0 I & O 08/06/21 08/06/21 08/07/21 15:00 23:00 07:00 Intake Total 300 ml 1540 ml 250 ml Output Total 300 ml 450 ml Balance 0 ml 1540 ml -200 ml Physical Exam General: Alert, Oriented X3, Cooperative, No acute distress Heart: Regular rate (SR), Normal S1, Normal S2, Other (3/6 systolic murmur to WILLY border) Lungs: Clear Abdomen: Normal bowel sounds, Soft, No tenderness Extremities: No cyanosis, No edema Skin: No breakdown, No significant lesion Labs Labs: Laboratory Tests Test 08/07/21 07:45 White Blood Count 8.5 x10^3/uL (4.0-11.0) Red Blood Count 2.28 x10^6/uL (4.30-5.70) Hemoglobin 7.6 g/dL (13.0-17.5) Hematocrit 22.2 % (39.0-53.0) Mean Corpuscular Volume 98 fL (79-100) Mean Corpuscular Hemoglobin 33 pg (25-35) Mean Corpuscular Hemoglobin Concent 34 g/dL (31-37) Red Cell Distribution Width 13.8 % (11.5-14.5) Platelet Count 135 x10^3/uL (140-400) Neutrophils (%) (Auto) 73 % (31-73) Lymphocytes (%) (Auto) 13 % (24-48) Monocytes (%) (Auto) 8 % (0-9) Eosinophils (%) (Auto) 5 % (0-3) Basophils (%) (Auto) 1 % (0-3) Neutrophils # (Auto) 6.2 x10^3/uL (1.8-7.7) Lymphocytes # (Auto) 1.1 x10^3/uL (1.0-4.8) Monocytes # (Auto) 0.7 x10^3/uL (0.0-1.1) Eosinophils # (Auto) 0.4 x10^3/uL (0.0-0.7) Basophils # (Auto) 0.1 x10^3/uL (0.0-0.2) Review of Systems Review of Systems: Pt complains of nausea, weakness. Assessment and Plan Assessmemt and Plan Problems Medical Problems: (1) COVID-19 Status: Acute (2) Fall Status: Acute (3) Intertrochanteric fracture of right hip Status: Acute (4) UTI (urinary tract infection) Status: Acute Acute fall Acute Comminuted intertrochanteric fracture of the right proximal femur Covid-19 Essential hypertension Remote Tobacco abuse UTI ASHD CAD Plan: Wound care Encourage po intake Appreciate subspecialist input (Cardio) Cardiac monitoring PT Trend labs Home meds DVT prophylaxis Full code Discharge disposition pending Comment Review of Relevant I have reviewed the following items raimundo (where applicable) has been applied. Medications: Current Medications Medications (Trade) Dose Ordered Sig/Cynthia Route PRN Reason Start Time Stop Time Status Last Admin Dose Admin Enoxaparin Sodium (Lovenox 40mg Syringe) 40 mg QHS SQ 08/06/21 21:00 08/06/21 21:34 Senna/Docusate Sodium (Senna Plus) 1 tab DAILY PO 08/07/21 09:00 08/07/21 09:00 Ondansetron HCl (Zofran) 4 mg PRN Q4HRS PRN IVP NAUSEA/VOMITING 08/06/21 14:45 08/07/21 08:53 Cefazolin Sodium/ Dextrose 50 ml @ 100 mls/hr Q6H IV 08/06/21 15:00 08/07/21 03:29 DC 08/07/21 03:07 Gabapentin (Neurontin) 300 mg BID PO 08/07/21 10:00 08/07/21 11:39 Tramadol HCl (Ultram) 50 mg PRN Q6HRS PRN PO PAIN 08/07/21 09:00 08/07/21 11:47 Justifications for Admission General Conditions Other justification for admit: acute right hip fracture Other Justification YONG HOOD III DO Aug 07, 2021 12:25
[2021-08-07 15:00] VITALS: BP 136/57
--- NOTE | 2021-08-07 15:51 | DISCH ---
SILVINA HILTON DO 08/07/21 1551: DISCHARGE INSTRUCTIONS Activity After Discharge Activity Instructions for Disc: Progressive ambulation Bathing Instructions: Shower-keep dressing dry Exercise Instruction after Dis: Progress as tolerated Weight Bearing Status after Di: Full weight bearing, As tolerated Wound Incision Care Wound/Incision Care: May get incision wet Wound Care Equipment: Dressings, Sutures/cipriano Follow-Up Follow up with: call [phone] for ORTHOPEDIC follow up appt with DR HILTON in 4 wks ERNESTO PHILLIPS MD 08/11/21 1635: DISCHARGE INSTRUCTIONS Condition on Discharge Condition on Discharge: Stable SILVINA HILTON DO Aug 07, 2021 15:51 ERNESTO PHILLIPS MD Aug 11, 2021 16:35
[2021-08-07] MEDS ORDERED: BISACODYL 10 MG SUPP.RECT. PR PRN (16:00)
[2021-08-07 19:00] VITALS: BP 135/58
[2021-08-07] MEDS: ATORVASTATIN CALCIUM 20 MG TABLET PO SCH (21:33)
[2021-08-07] MEDS: CLOPIDOGREL BISULFATE 75 MG TABLET PO SCH (21:33)
[2021-08-07] MEDS: FAMOTIDINE 20 MG TABLET. PO SCH (21:33)
[2021-08-07] MEDS: ASPIRIN ENTERIC COATED 81 MG TABLET.DR. PO SCH (21:33)
[2021-08-07] MEDS: DUTASTERIDE 0.5 MG CAPSULE PO SCH (21:33)
[2021-08-07] MEDS: METOPROLOL SUCC 24HR ER 25 MG TAB.ER.24H. PO SCH (21:34)
[2021-08-07] MEDS: TOPIRAMATE 25 MG TABLET. PO SCH (21:34)
[2021-08-07] MEDS: ENOXAPARIN 40 MG/0.4 ML SYRINGE. SQ SCH (21:35)
[2021-08-07 23:00] VITALS: BP 138/64
[2021-08-08 03:00] VITALS: BP 117/57
[2021-08-08] MEDS: ACETAMINOPHEN 325 MG TABLET. PO PRN (04:05)
[2021-08-08] MEDS: IV NORMAL SALINE 1000ML BAG 1,000 ML IV SCH ×2 (06:48→21:11)
[2021-08-08] MEDS: fentaNYL PF VIAL 100 MCG/2 ML VIAL IVP PRN ×4 (06:48→21:12)
[2021-08-08 07:00] VITALS: BP 107/48
[2021-08-08] MEDS: SENNOSIDES/DOCUSATE 8.6/50MG TABLET. PO SCH (08:52)
[2021-08-08] MEDS: GABAPENTIN 300 MG CAPSULE. PO SCH ×2 (08:52→21:12)
--- NOTE | 2021-08-08 08:57 | PDOC ---
[facility] PROGRESS NOTE Date of Service DOS: DATE: 08/08/21 TIME: 08:56 Chief Complaint Chief Complaint Acute fall Acute Comminuted intertrochanteric fracture of the right proximal femur Covid-19 Essential hypertension Remote Tobacco abuse UTI ASHD CAD History of Present Illness History of Present Illness 08/08/2021: Tried moving his legs this morning and experienced some hip pain. Pain controlled with medication. Other than this has no new complaints; denies shortness of breath or cough. Discussed with patient that he will need mcc, and is likely to happen on Tuesday. 08/07/2021: Pt seen and examined. Discussed with RN. Chart reviewed. Post-op day 2. Wound dressing clean, dry, intact. Pt tolerating po foods well. 08/05/2021: Afebrile, breathing room air. Surgery tentatively planned for this evening. Pain controlled with medications. Following surgery opiates began to work with PT for eventual SNU discharge. Vitals/I&O Vitals/I&O: Vital Signs Date Time Temp Pulse Resp B/P (MAP) Pulse Ox O2 Delivery O2 Flow Rate FiO2 08/08/21 07:18 16 96 Room Air 08/08/21 03:00 97.8 76 117/57 (77) 97.8 08/07/21 21:35 3.0 I & O 08/07/21 08/07/21 08/08/21 15:00 23:00 07:00 Intake Total 1000 ml 200 ml 120 ml Output Total 850 ml 150 ml Balance 1000 ml -650 ml -30 ml Physical Exam General: Alert, Oriented X3, Cooperative, No acute distress Heart: Regular rate (SR), Normal S1, Normal S2, Other (3/6 systolic murmur to WILLY border) Lungs: Clear Abdomen: Normal bowel sounds, Soft, No tenderness Extremities: No cyanosis, No edema Skin: No breakdown, No significant lesion Assessment and Plan Assessmemt and Plan Problems Medical Problems: (1) COVID-19 Status: Acute (2) Fall Status: Acute (3) Intertrochanteric fracture of right hip Status: Acute (4) UTI (urinary tract infection) Status: Acute Comment Review of Relevant I have reviewed the following items raimundo (where applicable) has been applied. Medications: Current Medications Medications (Trade) Dose Ordered Sig/Cynthia Route PRN Reason Start Time Stop Time Status Last Admin Dose Admin Senna/Docusate Sodium (Senna Plus) 1 tab DAILY PO 08/07/21 09:00 08/08/21 08:52 Clopidogrel Bisulfate (Plavix) 75 mg QHS PO 08/07/21 21:00 08/07/21 21:33 Gabapentin (Neurontin) 300 mg BID PO 08/07/21 10:00 08/08/21 08:52 Topiramate (Topamax) 25 mg QHS PO 08/07/21 21:00 08/07/21 21:34 Tramadol HCl (Ultram) 50 mg PRN Q6HRS PRN PO PAIN 08/07/21 09:00 08/07/21 21:35 Famotidine (Pepcid) 40 mg HS PO 08/07/21 21:00 08/07/21 21:33 Dutasteride (Avodart) 0.5 mg QHS PO 08/07/21 21:00 08/07/21 21:33 Justifications for Admission General Conditions Other justification for admit: acute right hip fracture Other Justification YOANDY FRANCIS MD Aug 08, 2021 08:57
[2021-08-08] MEDS: traMADol 50 MG TABLET PO PRN (08:59)
[2021-08-08 11:00] VITALS: BP 110/52
[2021-08-08 15:00] VITALS: BP 121/53
[2021-08-08] MEDS: ONDANSETRON PF 4 MG/2 ML VIAL. IVP PRN (15:53)
[2021-08-08 19:00] VITALS: BP 140/64
[2021-08-08] MEDS: ASPIRIN ENTERIC COATED 81 MG TABLET.DR. PO SCH (21:12)
[2021-08-08] MEDS: TOPIRAMATE 25 MG TABLET. PO SCH (21:12)
[2021-08-08] MEDS: FAMOTIDINE 20 MG TABLET. PO SCH (21:12)
[2021-08-08] MEDS: ATORVASTATIN CALCIUM 20 MG TABLET PO SCH (21:12)
[2021-08-08] MEDS: DUTASTERIDE 0.5 MG CAPSULE PO SCH (21:12)
[2021-08-08] MEDS: METOPROLOL SUCC 24HR ER 25 MG TAB.ER.24H. PO SCH (21:13)
[2021-08-08] MEDS: ENOXAPARIN 40 MG/0.4 ML SYRINGE. SQ SCH (21:13)
[2021-08-08] MEDS: CLOPIDOGREL BISULFATE 75 MG TABLET PO SCH (21:13)
[2021-08-08 23:18] VITALS: BP 131/53
[2021-08-09] MEDS: traMADol 50 MG TABLET PO PRN ×3 (03:18→17:39)
[2021-08-09 03:29] VITALS: BP 128/59
[2021-08-09 07:00] VITALS: BP 151/70
[2021-08-09] MEDS: SENNOSIDES/DOCUSATE 8.6/50MG TABLET. PO SCH (08:31)
[2021-08-09] MEDS: GABAPENTIN 300 MG CAPSULE. PO SCH ×2 (08:31→21:38)
[2021-08-09] MEDS: IV NORMAL SALINE 1000ML BAG 1,000 ML IV SCH ×2 (08:33→20:06)
--- NOTE | 2021-08-09 09:50 | PDOC ---
[facility] PROGRESS NOTE Date of Service DOS: DATE: 08/09/21 TIME: 09:47 Chief Complaint Chief Complaint Acute fall Acute Comminuted intertrochanteric fracture of the right proximal femur Covid-19 Essential hypertension Remote Tobacco abuse UTI ASHD CAD History of Present Illness History of Present Illness 08/09/2021: No complaints or concerns today. Denies shortness of breath. Pain controlled. He will need SNU following his right hip surgery. Anticipate discharge tomorrow. 08/08/2021: Tried moving his legs this morning and experienced some hip pain. Pain controlled with medication. Other than this has no new complaints; denies shortness of breath or cough. Discussed with patient that he will need halfway, and is likely to happen on Tuesday. 08/07/2021: Pt seen and examined. Discussed with RN. Chart reviewed. Post-op day 2. Wound dressing clean, dry, intact. Pt tolerating po foods well. 08/05/2021: Afebrile, breathing room air. Surgery tentatively planned for this evening. Pain controlled with medications. Following surgery opiates began to work with PT for eventual SNU discharge. Vitals/I&O Vitals/I&O: Vital Signs Date Time Temp Pulse Resp B/P (MAP) Pulse Ox O2 Delivery O2 Flow Rate FiO2 08/09/21 09:21 Room Air 08/09/21 07:00 98.1 93 16 151/70 (97) 93 98.1 08/09/21 03:48 3.0 I & O 08/08/21 08/08/21 08/09/21 15:00 23:00 07:00 Intake Total 480 ml 1240 ml 410 ml Output Total 400 ml 600 ml Balance 80 ml 1240 ml -190 ml Physical Exam General: Alert, Oriented X3, Cooperative, No acute distress Heart: Regular rate (SR), Normal S1, Normal S2, Other (3/6 systolic murmur to WILLY border) Lungs: Clear Abdomen: Normal bowel sounds, Soft, No tenderness Extremities: No cyanosis, No edema Skin: No breakdown, No significant lesion Assessment and Plan Assessmemt and Plan Problems Medical Problems: (1) COVID-19 Status: Acute (2) Fall Status: Acute (3) Intertrochanteric fracture of right hip Status: Acute (4) UTI (urinary tract infection) Status: Acute Comment Review of Relevant I have reviewed the following items raimundo (where applicable) has been applied. Justifications for Admission General Conditions Other justification for admit: acute right hip fracture Other Justification YOANDY FRANCIS MD Aug 09, 2021 09:50
[2021-08-09 11:00] VITALS: BP 139/59
--- NOTE | 2021-08-09 12:07 | PDOC ---
[facility] PROGRESS NOTE Date of Service DOS: DATE: 08/09/21 TIME: 12:06 Chief Complaint Chief Complaint Acute fall Acute Comminuted intertrochanteric fracture of the right proximal femur Covid-19 Essential hypertension Remote Tobacco abuse UTI ASHD CAD History of Present Illness History of Present Illness 08/09/2021: No complaints or concerns today. Denies shortness of breath. Pain controlled. He will need SNU following his right hip surgery. Anticipate discharge tomorrow. 08/08/2021: Tried moving his legs this morning and experienced some hip pain. Pain controlled with medication. Other than this has no new complaints; denies shortness of breath or cough. Discussed with patient that he will need fpc, and is likely to happen on Tuesday. 08/07/2021: Pt seen and examined. Discussed with RN. Chart reviewed. Post-op day 2. Wound dressing clean, dry, intact. Pt tolerating po foods well. 08/05/2021: Afebrile, breathing room air. Surgery tentatively planned for this evening. Pain controlled with medications. Following surgery opiates began to work with PT for eventual SNU discharge. Vitals/I&O Vitals/I&O: Vital Signs Date Time Temp Pulse Resp B/P (MAP) Pulse Ox O2 Delivery O2 Flow Rate FiO2 08/09/21 11:00 98.1 82 16 139/59 (85) 97 Room Air 98.1 08/09/21 03:48 3.0 I & O 08/08/21 08/08/21 08/09/21 15:00 23:00 07:00 Intake Total 480 ml 1240 ml 410 ml Output Total 400 ml 600 ml Balance 80 ml 1240 ml -190 ml Physical Exam General: Alert, Oriented X3, Cooperative, No acute distress Heart: Regular rate (SR), Normal S1, Normal S2, Other (3/6 systolic murmur to WILLY border) Lungs: Clear Abdomen: Normal bowel sounds, Soft, No tenderness Extremities: No cyanosis, No edema Skin: No breakdown, No significant lesion Assessment and Plan Assessmemt and Plan Problems Medical Problems: (1) COVID-19 Status: Acute (2) Fall Status: Acute (3) Intertrochanteric fracture of right hip Status: Acute (4) UTI (urinary tract infection) Status: Acute Comment Review of Relevant I have reviewed the following items raimundo (where applicable) has been applied. Justifications for Admission General Conditions Other justification for admit: acute right hip fracture Other Justification YOANDY FRANCIS MD Aug 09, 2021 12:07
[2021-08-09] MEDS: fentaNYL PF VIAL 100 MCG/2 ML VIAL IVP PRN ×2 (14:07→19:59)
[2021-08-09 15:00] VITALS: BP 139/64
[2021-08-09] MEDS: ONDANSETRON PF 4 MG/2 ML VIAL. IVP PRN (15:03)
[2021-08-09 19:34] VITALS: BP 140/56
[2021-08-09] MEDS: ASPIRIN ENTERIC COATED 81 MG TABLET.DR. PO SCH (21:36)
[2021-08-09] MEDS: ENOXAPARIN 40 MG/0.4 ML SYRINGE. SQ SCH (21:37)
[2021-08-09] MEDS: FAMOTIDINE 20 MG TABLET. PO SCH (21:38)
[2021-08-09] MEDS: DUTASTERIDE 0.5 MG CAPSULE PO SCH (21:38)
[2021-08-09] MEDS: TOPIRAMATE 25 MG TABLET. PO SCH (21:38)
[2021-08-09] MEDS: CLOPIDOGREL BISULFATE 75 MG TABLET PO SCH (21:38)
[2021-08-09] MEDS: ATORVASTATIN CALCIUM 20 MG TABLET PO SCH (21:38)
[2021-08-09] MEDS: METOPROLOL SUCC 24HR ER 25 MG TAB.ER.24H. PO SCH (21:57)
[2021-08-09 23:00] VITALS: BP 121/55
[2021-08-10 03:01] VITALS: BP 144/59
[2021-08-10] MEDS: traMADol 50 MG TABLET PO PRN ×2 (05:24→12:10)
[2021-08-10 07:00] VITALS: BP 140/60
[2021-08-10] MEDS: SENNOSIDES/DOCUSATE 8.6/50MG TABLET. PO SCH (08:18)
[2021-08-10] MEDS: GABAPENTIN 300 MG CAPSULE. PO SCH ×2 (08:18→20:39)
[2021-08-10] MEDS: IV NORMAL SALINE 1000ML BAG 1,000 ML IV SCH ×2 (09:02→20:38)
--- NOTE | 2021-08-10 10:45 | NUR ---
SW following. Discussed with RN, SW spoke with Giuseppe at [facility], DON will make a decision today about acceptance. Will need insurance auth also. COVID-19 positive. SW will continue to follow.
[2021-08-10 11:00] VITALS: BP 143/58
--- NOTE | 2021-08-10 11:55 | PDOC ---
CARD[facility] Progress Notes Date and Time Date of Service 08/10/21 Time of Evaluation 1220 Subjective Subjective: No Chest Pain, No shortness of breath, No Palpitations Vitals Vitals Vital Signs Date Time Temp Pulse Resp B/P (MAP) Pulse Ox O2 Delivery O2 Flow Rate FiO2 08/10/21 07:50 Room Air 08/10/21 07:00 97.4 74 18 140/60 (86) 94 97.4 Weight Weight [ ] Input and Output Intake and Output Intake and Output 08/10/21 07:00 Intake Total 1000 ml Output Total 1770 ml Balance -770 ml IV Total 1000 ml Output Urine Total 1770 ml Microbiology Micro Microbiology 08/05/21 Urine Culture - Final, Complete Physical Exam HEENT: Neck Supple W Full Motion Chest: Symmetric LUNGS: Other (on RA) Heart: S1S2, RRR Extremities: No Edema Neurology: alert, follow commands Assessment Assessment 1. Viral syndrome with covid-19: vaccinated with moderna on 01/2021. on RA 2. Traumatic mechanical fall: possibly due to weakness 3. Comminuted intertrochanteric fracture of the right proximal femur; s/p nailing 4. CAD: stents about 3 yrs ago. clinically stable 5. HTN: controlled 6. HLP 7. COPD: stable 8. Hx of TIA Recommendations Secondary prevention Continue ASA/Plavix and BB therapy. Post op management as per ortho Justicifation of Admission Dx: Justifications for Admission: Justification of Admission Dx: ABDULLAHI Leone APRN Aug 10, 2021 11:55
--- NOTE | 2021-08-10 13:16 | PDOC ---
[facility] PROGRESS NOTE Date of Service DOS: DATE: 08/10/21 TIME: 13:15 Chief Complaint Chief Complaint Acute fall Acute Comminuted intertrochanteric fracture of the right proximal femur Covid-19 Essential hypertension Remote Tobacco abuse UTI ASHD CAD History of Present Illness History of Present Illness 08/10/2020 No acute events overnight. Patient seen and examined bedside. No complaints at time. Covid positive but saturating 97% on room air without any dyspnea. Pending placement to [facility]. They will be able to take Covid positive patients. Patient's chart, labs, images were reviewed and discussed with RN 08/09/2021: No complaints or concerns today. Denies shortness of breath. Pain controlled. He will need SNU following his right hip surgery. Anticipate discharge tomorrow. 08/08/2021: Tried moving his legs this morning and experienced some hip pain. Pain controlled with medication. Other than this has no new complaints; denies shortness of breath or cough. Discussed with patient that he will need nursing home, and is likely to happen on Tuesday. 08/07/2021: Pt seen and examined. Discussed with RN. Chart reviewed. Post-op day 2. Wound dressing clean, dry, intact. Pt tolerating po foods well. 08/05/2021: Afebrile, breathing room air. Surgery tentatively planned for this evening. Pain controlled with medications. Following surgery opiates began to work with PT for eventual SNU discharge. Vitals/I&O Vitals/I&O: Vital Signs Date Time Temp Pulse Resp B/P (MAP) Pulse Ox O2 Delivery O2 Flow Rate FiO2 08/10/21 12:10 Room Air 08/10/21 11:00 97.8 77 18 143/58 (86) 92 97.8 I & O 08/09/21 08/09/21 08/10/21 15:00 23:00 07:00 Intake Total 1000 ml Output Total 1220 ml 200 ml 350 ml Balance -1220 ml 800 ml -350 ml Physical Exam General: Alert, Oriented X3, Cooperative, No acute distress Heart: Regular rate (SR), Normal S1, Normal S2, Other (3/6 systolic murmur to WILLY border) Lungs: Clear Abdomen: Normal bowel sounds, Soft, No tenderness Extremities: No cyanosis, No edema Skin: No breakdown, No significant lesion Assessment and Plan Assessmemt and Plan Problems Medical Problems: (1) COVID-19 Status: Acute (2) Fall Status: Acute (3) Intertrochanteric fracture of right hip Status: Acute (4) UTI (urinary tract infection) Status: Acute Comment Review of Relevant I have reviewed the following items raimundo (where applicable) has been applied. Justifications for Admission General Conditions Other justification for admit: acute right hip fracture Other Justification ERNESTO PHILLIPS MD Aug 10, 2021 13:16
[2021-08-10 15:00] VITALS: BP 151/64
[2021-08-10] MEDS: fentaNYL PF VIAL 100 MCG/2 ML VIAL IVP PRN (15:49)
[2021-08-10] MEDS ORDERED: LIDOCAINE (700MG/PATCH) PATCH. TD PRN (17:30)
[2021-08-10] MEDS: DICLOFENAC SODIUM 1% TOPICAL GEL 100GM TUBE. TP SCH ×2 (17:43→20:40)
[2021-08-10 19:00] VITALS: BP 137/66
[2021-08-10] MEDS: ENOXAPARIN 40 MG/0.4 ML SYRINGE. SQ SCH (20:38)
[2021-08-10] MEDS: DUTASTERIDE 0.5 MG CAPSULE PO SCH (20:39)
[2021-08-10] MEDS: METOPROLOL SUCC 24HR ER 25 MG TAB.ER.24H. PO SCH (20:39)
[2021-08-10] MEDS: CLOPIDOGREL BISULFATE 75 MG TABLET PO SCH (20:39)
[2021-08-10] MEDS: ASPIRIN ENTERIC COATED 81 MG TABLET.DR. PO SCH (20:39)
[2021-08-10] MEDS: TOPIRAMATE 25 MG TABLET. PO SCH (20:39)
[2021-08-10] MEDS: FAMOTIDINE 20 MG TABLET. PO SCH (20:39)
[2021-08-10] MEDS: ATORVASTATIN CALCIUM 20 MG TABLET PO SCH (20:39)
[2021-08-10 23:24] VITALS: BP 145/55
[2021-08-11] MEDS: traMADol 50 MG TABLET PO PRN ×2 (01:28→19:07)
[2021-08-11 03:27] VITALS: BP 127/67
[2021-08-11] MEDS: ONDANSETRON PF 4 MG/2 ML VIAL. IVP PRN (05:01)
[2021-08-11 07:00] VITALS: BP 126/61
[2021-08-11] MEDS: GABAPENTIN 300 MG CAPSULE. PO SCH (08:16)
[2021-08-11] MEDS: SENNOSIDES/DOCUSATE 8.6/50MG TABLET. PO SCH (08:16)
[2021-08-11] MEDS: DICLOFENAC SODIUM 1% TOPICAL GEL 100GM TUBE. TP SCH (08:17)
[2021-08-11] MEDS: IV NORMAL SALINE 1000ML BAG 1,000 ML IV SCH (08:28)
[2021-08-11 11:00] VITALS: BP 121/50
--- NOTE | 2021-08-11 12:13 | PDOC ---
[facility] PROGRESS NOTE Date of Service DOS: DATE: 08/11/21 TIME: 12:12 Chief Complaint Chief Complaint Acute fall Acute Comminuted intertrochanteric fracture of the right proximal femur Covid-19 Essential hypertension Remote Tobacco abuse UTI ASHD CAD History of Present Illness History of Present Illness 08/11/2021 No acute events overnight. Patient seen and examined bedside. No concerns nursing. Working well with PT OT. Pending placement to [facility] versus rehab. Patient's chart, labs, images were reviewed and discussed with RN 08/10/2021 No acute events overnight. Patient seen and examined bedside. No complaints at time. Covid positive but saturating 97% on room air without any dyspnea. Pending placement to [facility] rehab. They will be able to take Covid positive patients. Patient's chart, labs, images were reviewed and discussed with RN 08/09/2021: No complaints or concerns today. Denies shortness of breath. Pain controlled. He will need SNU following his right hip surgery. Anticipate discharge tomorrow. 08/08/2021: Tried moving his legs this morning and experienced some hip pain. Pain controlled with medication. Other than this has no new complaints; denies shortness of breath or cough. Discussed with patient that he will need snf, and is likely to happen on Tuesday. 08/07/2021: Pt seen and examined. Discussed with RN. Chart reviewed. Post-op day 2. Wound dressing clean, dry, intact. Pt tolerating po foods well. 08/05/2021: Afebrile, breathing room air. Surgery tentatively planned for this evening. Pain controlled with medications. Following surgery opiates began to work with PT for eventual SNU discharge. Vitals/I&O Vitals/I&O: Vital Signs Date Time Temp Pulse Resp B/P (MAP) Pulse Ox O2 Delivery O2 Flow Rate FiO2 08/11/21 11:00 98.0 82 20 121/50 (73) 97 Room Air 98.0 08/10/21 13:18 3.0 I & O 08/10/21 08/10/21 08/11/21 15:00 23:00 07:00 Intake Total 240 ml 0 ml Output Total 450 ml 200 ml 400 ml Balance -210 ml -200 ml -400 ml Physical Exam General: Alert, Oriented X3, Cooperative, No acute distress Heart: Regular rate (SR), Normal S1, Normal S2, Other (3/6 systolic murmur to WILLY border) Lungs: Clear Abdomen: Normal bowel sounds, Soft, No tenderness Extremities: No cyanosis, No edema Skin: No breakdown, No significant lesion Assessment and Plan Assessmemt and Plan Problems Medical Problems: (1) COVID-19 Status: Acute (2) Fall Status: Acute (3) Intertrochanteric fracture of right hip Status: Acute (4) UTI (urinary tract infection) Status: Acute Comment Review of Relevant I have reviewed the following items raimundo (where applicable) has been applied. Medications: Current Medications Medications (Trade) Dose Ordered Sig/Cynthia Route PRN Reason Start Time Stop Time Status Last Admin Dose Admin Diclofenac Sodium (Voltaren) 1 macey BID TP 08/10/21 17:30 08/11/21 08:17 Justifications for Admission General Conditions Other justification for admit: acute right hip fracture Other Justification ERNESTO PHILLIPS MD Aug 11, 2021 12:13
--- NOTE | 2021-08-11 12:44 | NUR ---
ABDI following. Discussed with RN, updates faxed to [facility] per insurance request. [facility]I will continue to follow. Addendum: 08/11/21 at 1604 by MT PATTON Insurance approved transfer to [facility] at [facility]. Awaiting discharge orders. RN notified. Addendum: 08/11/21 at 1628 by MT PATTON Transportation arranged for [phone]. RN notified. No discharge orders as of yet. Will have RN call family to notify of discharge in case plans change.
[2021-08-11 15:00] VITALS: BP 133/58
[2021-08-11] MEDS ORDERED: TRAM50TA PO (16:29)
[2021-08-11] MEDS ORDERED: Diclofenac Sodium TP (16:34)
[2021-08-11] MEDS ORDERED: ACET325T21 PO (16:34)
--- NOTE | 2021-08-11 16:36 | SNU/HH DC ---
DISCHARGE ORDERS DISCHARGE INFORMATION: DISCHARGE DATE: Aug 11, 2021 FINAL DIAGNOSIS Problems Medical Problems: (1) COVID-19 Status: Acute (2) Fall Status: Acute (3) Intertrochanteric fracture of right hip Status: Acute (4) UTI (urinary tract infection) Status: Acute CONDITION ON DISCHARGE: Stable CODE STATUS: Code Status: Full ALF: SNF STAY <30 DAYS: Yes POST DISCHARGE ORDERS: ACTIVITY ORDERS: Progressive ambulation WEIGHT BEARING STATUS: Full weight bearing, As tolerated BATHING ORDERS: Shower-keep dressing dry WOUND/INCISION CARE: May get incision wet FOLLOW-UP: PHYSICIAN FOLLOW-UP: call [phone] for ORTHOPEDIC follow up appt with DR HILTON in 4 wks LAB ORDERS FOR FOLLOW-UP: CBC, CMP TREATMENT/EQUIPMENT ORDERS: Physical Therapy For: Evalulation/Treatment Occupational Therapy For: Evaluation/Treatment DISCHARGE MEDICATIONS: Home Meds Active Scripts Acetaminophen (ACETAMINOPHEN) 325 Mg Tablet, 650 MG PO PRN Q4HRS PRN for TEMP OVER 100.4F OR MILD PAIN for 14 Days, #60 TAB Prov:ERNESTO PHILLIPS MD 08/11/21 [Diclofenac Sodium 1% Topical] 100 GM GEL..GRAM. No Conflict Check, 1 EVERETT TP BID for pain for 7 Days, #14 EACH Prov:ERNESTO PHILLIPS MD 08/11/21 Reported Medications Atorvastatin Calcium (ATORVASTATIN CALCIUM) 20 Mg Tablet, 1 TAB PO DAILY for c holesterol, #30 TAB 5 Refills 08/04/21 Metoprolol Succinate (METOPROLOL SUCCINATE ( XL )) 25 Mg Tab.er.24h, 1 TAB PO QHS for cardiac, #30 TAB 5 Refills 08/04/21 Topiramate (TOPIRAMATE) 25 Mg Tablet, 1 TAB PO QHS for unk for 30 Days, #30 TAB 0 Refills 08/04/21 Clopidogrel Bisulfate (CLOPIDOGREL) 75 Mg Tablet, 1 TAB PO QHS for cardiac, #90 TAB 1 Refill 08/04/21 Famotidine (FAMOTIDINE) 40 Mg Tablet, 40 MG PO HS for GERD, TAB 08/04/21 Gabapentin (GABAPENTIN ) 100 Mg Capsule, 100 MG PO QHS for NEUROGENIC PAIN, CAP 08/04/21 Tramadol Hcl (TRAMADOL HCL) 50 Mg Tablet, 50 MG PO Q6HRS PRN for PAIN, TAB 08/04/21 [prevagen dutasteride] No Conflict Check, 0.5 MG PO QHS for supplement 08/04/21 Aspirin (ASPIRIN EC) 81 Mg Tablet., 1 TAB PO QHS for cardiac, #30 TAB 3 Refills 08/04/21 ERNESTO PHILLIPS MD Aug 11, 2021 16:36
[2021-08-11] MEDS: fentaNYL PF VIAL 100 MCG/2 ML VIAL IVP PRN (17:33)
--- NOTE | 2021-08-11 18:10 | NUR ---
REPORT CALLED TO JHONNY AT THE RECEIVING FACILITY, QUESTIONS AND CONCERNS ANSWERED, DISCHARGE PAPERWORK IN PACKET FOR DISCHARGE, SALINE LOCKS REMOVED FROM LEFT AC AND RIGHT HAND PER AUTO FLEET MAINTENANCE MANAGER. ALL PERSONAL BELONGINGS GATHERED BY THE STAFF AND PLACED IN BAGS FOR DISCHARGE.
--- NOTE | 2021-08-11 19:15 | NUR ---
PATIENT LEAVES THE UNIT PER W/C AND ALONG SIDE MENTAL HEALTH NURSE PRACTITIONER, EMOTIONAL SUPPORT GIVEN.
--- NOTE | 2021-08-18 19:25 | PDOC3 ---
[facility]-Discharge Summary Date of Admission: Date of Admission: Aug 04, 2021 Date of Discharge: Date of Discharge: Aug 11, 2021 Discharge Diagnosis: Discharge Diagnosis: Acute fall Acute Comminuted intertrochanteric fracture of the right proximal femur Covid-19 Essential hypertension Remote Tobacco abuse UTI ASHD CAD Hospital Course: Hospital Course: 81 yr old male who fell today , outside his home, denies syncope, just fell on uneven ground / x ray c/w right hip fax, he has noted a mild cough and Covid 19 screen is pos in ER today denies chest pain, fever, abdominal pain, head or neck injury hgb 10.8 cr 1.3 , remote smoker has hx CAD with stents, remote// hx Anterior stabilization and interbody fusion C5-C7. EKG@1133 NSR at 64bpm, NO ST elevation, QRS 92ms, QT/QTc 386/402ms,/ denies any numbness weakness or tingling of his arms or legs. impression Mechanical fall at home, accidental / Acute Comminuted intertrochanteric fracture of the right proximal femur. /Covid POS screen in ER, minimal symptoms Essential hypertension plan consult ortho, consult cardiology pre-op exam, consider echo 08/11/2021 No acute events overnight. Patient seen and examined bedside. No concerns nursing. Working well with PT OT. Pending placement to [facility] SNF versus rehab. Patient's chart, labs, images were reviewed and discussed with RN 08/10/2021 No acute events overnight. Patient seen and examined bedside. No complaints at time. Covid positive but saturating 97% on room air without any dyspnea. Pending placement to [facility] rehab. They will be able to take Covid positive patients. Patient's chart, labs, images were reviewed and discussed with RN 08/09/2021: No complaints or concerns today. Denies shortness of breath. Pain controlled. He will need SNU following his right hip surgery. Anticipate discharge tomorrow. 08/08/2021: Tried moving his legs this morning and experienced some hip pain. Pain controlled with medication. Other than this has no new complaints; denies shortness of breath or cough. Discussed with patient that he will need assisted, and is likely to happen on Tuesday. 08/07/2021: Pt seen and examined. Discussed with RN. Chart reviewed. Post-op day 2. Wound dressing clean, dry, intact. Pt tolerating po foods well. 08/05/2021: Afebrile, breathing room air. Surgery tentatively planned for this evening. Pain controlled with medications. Following surgery opiates began to work with PT for eventual SNU discharge. Pt stable on day of discharge. Disposition: Disposition/Orders: D/C to Another Facility Activity: Activity: Resume previous activity Diet: Diet: Regular Medications: Home Meds Active Scripts Acetaminophen (ACETAMINOPHEN) 325 Mg Tablet, 650 MG PO PRN Q4HRS PRN for TEMP OVER 100.4F OR MILD PAIN for 14 Days, #60 TAB Prov:ERNESTO PHILLIPS MD 08/11/21 [Diclofenac Sodium 1% Topical] 100 GM GEL..GRAM. No Conflict Check, 1 EVERETT TP BID for pain for 7 Days, #14 EACH Prov:ERNESTO PHILLIPS MD 08/11/21 Reported Medications Atorvastatin Calcium (ATORVASTATIN CALCIUM) 20 Mg Tablet, 1 TAB PO DAILY for cholesterol, #30 TAB 5 Refills 08/04/21 Metoprolol Succinate (METOPROLOL SUCCINATE ( XL )) 25 Mg Tab.er.24h, 1 TAB PO QHS for cardiac, #30 TAB 5 Refills 08/04/21 Topiramate (TOPIRAMATE) 25 Mg Tablet, 1 TAB PO QHS for unk for 30 Days, #30 TAB 0 Refills 08/04/21 Clopidogrel Bisulfate (CLOPIDOGREL) 75 Mg Tablet, 1 TAB PO QHS for cardiac, #90 TAB 1 Refill 08/04/21 Famotidine (FAMOTIDINE) 40 Mg Tablet, 40 MG PO HS for GERD, TAB 08/04/21 Gabapentin (GABAPENTIN ) 100 Mg Capsule, 100 MG PO QHS for NEUROGENIC PAIN, CAP 08/04/21 Tramadol Hcl (TRAMADOL HCL) 50 Mg Tablet, 50 MG PO Q6HRS PRN for PAIN, TAB 08/04/21 [prevagen dutasteride] No Conflict Check, 0.5 MG PO QHS for supplement 08/04/21 Aspirin (ASPIRIN EC) 81 Mg Tablet.dr, 1 TAB PO QHS for cardiac, #30 TAB 3 Refills 08/04/21 Scheduled Aspirin (Aspirin Ec), 1 TAB PO QHS, (Reported) Atorvastatin Calcium (Atorvastatin Calcium), 1 TAB PO DAILY, (Reported) Clopidogrel Bisulfate (Clopidogrel), 1 TAB PO QHS, (Reported) Famotidine (Famotidine), 40 MG PO HS, (Reported) Gabapentin (Gabapentin ), 100 MG PO QHS, (Reported) Metoprolol Succinate (Metoprolol Succinate ( Xl )), 1 TAB PO QHS, (Reported) Topiramate (Topiramate), 1 TAB PO QHS, (Reported) [Diclofenac Sodium], 1 EVERETT TP BID [prevagen dutasteride], 0.5 MG PO QHS, (Reported) Scheduled PRN Acetaminophen (Acetaminophen), 650 MG PO PRN Q4HRS PRN for TEMP OVER 100.4F OR MILD PAIN Tramadol Hcl (Tramadol Hcl), 50 MG PO Q6HRS PRN for PAIN, (Reported) Total Time: Total Time: Total time spent was 33 minutes in preparing scripts and discharge planning with SW and RN Patient seen and examined on day of Discharge. Justicifation of Admission Dx: Justifications for Admission: Justification of Admission Dx: No ERNESTO PHILLIPS MD Aug 18, 2021 19:25
== END 2021-08-11 19:15 | DRG 480 ==
LOC: ER 11:25 → ED HOLD 13:10 → 5 NORTH 14:30
PROVIDERS: ADMIT Family Medicine; ATTEND Family Medicine
PROC: 0QH636Z Insertion of Intramedullary Internal Fixation Device into Right Upper Femur, Percutaneous Approach (ICD-10-PCS; principal; 2021-08-05 18:00)
DX: S72.141A Displaced intertrochanteric fracture of right femur, initial encounter for closed fracture (principal); U07.1 COVID-19; N39.0 Urinary tract infection, site not specified; E78.5 Hyperlipidemia, unspecified; I10 Essential (primary) hypertension; I25.10 Atherosclerotic heart disease of native coronary artery without angina pectoris; J44.9 Chronic obstructive pulmonary disease, unspecified; M06.9 Rheumatoid arthritis, unspecified; K21.9 Gastro-esophageal reflux disease without esophagitis; M19.90 Unspecified osteoarthritis, unspecified site; W01.0XXA Fall on same level from slipping, tripping and stumbling without subsequent striking against object, initial encounter; Z96.659 Presence of unspecified artificial knee joint; Z79.02 Long term (current) use of antithrombotics/antiplatelets; Z79.82 Long term (current) use of aspirin; Z82.49 Family history of ischemic heart disease and other diseases of the circulatory system; Z82.5 Family history of asthma and other chronic lower respiratory diseases; Z86.73 Personal history of transient ischemic attack (TIA), and cerebral infarction without residual deficits; Z87.891 Personal history of nicotine dependence; Z95.5 Presence of coronary angioplasty implant and graft; I25.2 Old myocardial infarction; Z88.8 Allergy status to other drugs, medicaments and biological substances; Z98.49 Cataract extraction status, unspecified eye; Z90.49 Acquired absence of other specified parts of digestive tract; Y93.89 Activity, other specified; Y92.89 Other specified places as the place of occurrence of the external cause; Y99.8 Other external cause status
CPT/HCPCS: 36415; 71045; 73502; 76000; 80048; 80053; 81001; 82553; 83735; 84484; 85025; 87086; 87426; 94640; 94760; 96361; 96374; 96375; 96376; A4213; A4930; A6223; A6253; A6402; C1713; J0171; J0690; J0696; J1100; J1170; J1650; J1885; J2270; J2370; J2405; J2704; J2795; J3010; J7030; 97110-GP; 97530-GO; 97530-GP; 97535-GO; 99285-25; G0378

== ENCOUNTER 2021-08-30 15:42 | Emergency (ER) | payer MEDICARE ==
[~2021-08-30] VITALS: Ht 175.3 cm; Wt 62.0 kg
[~2021-08-30 15:42] MED LIST: ACET325T21 PO; ASPI-886 PO; ATOR20TA58 PO; CLOP75TA PO; Diclofenac Sodium TP; FAMO40TA4 PO; GABA-585 PO; METO-239 PO; TOPI25TA7 PO; TRAM50TA PO; [UNRECOGNIZED DRUG - OTHER] PO
[2021-08-30] MEDS ORDERED: POLYETHYLENE GLYCOL 3350 17 GM PACKET. PO ONE (16:30)
[2021-08-30] MEDS ORDERED: SODIUM PHOSPHATES 19/7GM 133 ML ENEMA. PR ONE (16:30)
[2021-08-30 16:48] LABS: BASO # 0.1 x10^3/uL (0.0-0.2); BASO % 1 % (0-3); EOS # 0.1 x10^3/uL (0.0-0.7); EOS % 1 % (0-3); HEMATOCRIT 30.7 % (39.0-53.0); HEMOGLOBIN 9.9 g/dL (13.0-17.5); LYMPH # 0.9 x10^3/uL (1.0-4.8); LYMPH % 6 % (24-48); MEAN CORPUSCULAR HEMOGLOBIN 31 pg (25-35); MEAN CORPUSCULAR HGB CONC 32 g/dL (31-37); MEAN CORPUSCULAR VOLUME 95 fL (79-100); MONO # 0.9 x10^3/uL (0.0-1.1); MONO % 6 % (0-9); NEUT # 13.3 x10^3/uL (1.8-7.7); NEUT % 87 % (31-73); PLATELET COUNT 469 x10^3/uL (140-400); RED BLOOD COUNT 3.25 x10^6/uL (4.30-5.70); RED CELL DISTRIBUTION WIDTH 15.4 % (11.5-14.5); WHITE BLOOD COUNT 15.3 x10^3/uL (4.0-11.0)
[2021-08-30 17:02] LABS: CALCIUM 9.2 mg/dL (8.5-10.1); CREATININE 1.3 mg/dL (0.7-1.3); GFR 52.9; POTASSIUM 4.2 mmol/L (3.5-5.1)
[2021-08-30 17:04] LABS: MAGNESIUM 2.1 mg/dL (1.8-2.4)
--- NOTE | 2021-08-30 17:14 | PHYS DOC ---
Past Medical History Past Medical History: Hypertension, [place] Additional Past Medical Histor: RA, chronic neck knee and elbow pain Past Surgical History: Knee Replacement Additional Past Surgical Histo: RA, 4 CARDIAC STENTS, EXTENSIVE ELBOW SURGERIES, L hip fx Smoking Status: Former Smoker Alcohol Use: None Drug Use: None General Adult EDM: Chief Complaint: SYNCOPE HPI: HPI: Patient is a 81 year old male with history of CAD, recent hip fracture, knee replacements, previous right knee septic arthritis who presents with a syncopal episode. States that he was straining to have a bowel movement just prior to his syncopal episode. Was brief, quickly returned to consciousness. No postictal phase or abnormal movements. States that he has been having to strain to have bowel movements more frequently recently. Is only on senna for bowel regimen. Does have some rectal discomfort when trying to pass stool. Denies bloody stools. He is on iron supplementation so his stool is darker. He has been complaining of increasing right knee pain over the past several weeks. Denies swelling, redness, fever or chills. Denies abdominal pain, nausea, vomiting. He lives at home with his , and has had very limited mobility due to his right knee pain. However, they do feel that they are able to manage safely. Review of Systems: Review of Systems: Constitutional: Denies fever or chills. [] Eyes: Denies change in visual acuity. [] HENT: Denies nasal congestion or sore throat. [] Respiratory: Denies cough or shortness of breath. [] Cardiovascular: Ports syncopal episode. Denies chest pain or edema. [] GI: Denies abdominal pain, nausea, vomiting, bloody stools or diarrhea. Reports constipation. [] : Denies dysuria. [] Musculoskeletal: Denies back pain. Reports knee pain on the right. [] Integument: Denies rash. [] Neurologic: Denies headache, focal weakness or sensory changes. [] Endocrine: Denies polyuria or polydipsia. [] Lymphatic: Denies swollen glands. [] Psychiatric: Denies depression or anxiety. [] Heart Score: C/O Chest Pain: No Current Medications: Current Medications Medications (Trade) Dose Ordered Sig/Cynthia Start Time Stop Time Status Last Admin Dose Admin Polyethylene Glycol (miraLAX PACKET) 34 gm 1X ONCE 08/30/21 16:30 08/30/21 16:31 DC Sodium Monofluorophosphate (Fleet Adult) 133 ml 1X ONCE 08/30/21 16:30 08/30/21 16:31 DC Allergies: Allergies: Allergies Coded Allergies Type Severity Reaction Last Updated Verified iodamide Allergy Severe anaphylaxis 08/04/21 Yes Physical Exam: PE: Constitutional: Slightly frail and chronically ill-appearing. HENT: Normocephalic, atraumatic Eyes: PERRLA, EOMI, conjunctiva normal, no discharge. [] Neck: Normal range of motion, no tenderness, supple, no stridor. [] Cardiovascular:Heart rate regular rhythm, no murmur [] Lungs & Thorax: Bilateral breath sounds clear to auscultation [] Abdomen: Bowel sounds normal, soft, no tenderness, no masses, no pulsatile masses. Rectal exam with stool in the rectal vault, could not manually disimpact. Stool was mostly soft. [] Skin: Warm, dry, no erythema, no rash. [] Back: No tenderness, no CVA tenderness. [] Extremities: No tenderness, no cyanosis, no clubbing, ROM intact, no edema. [] Neurologic: Alert and oriented X 3, normal motor function, normal sensory function, no focal deficits noted. [] Psychologic: Affect normal, judgement normal, mood normal. [] Current Patient Data: Labs: Laboratory Tests Test 08/30/21 16:30 White Blood Count 15.3 x10^3/uL (4.0-11.0) H Red Blood Count 3.25 x10^6/uL (4.30-5.70) L Hemoglobin 9.9 g/dL (13.0-17.5) L Hematocrit 30.7 % (39.0-53.0) L Mean Corpuscular Volume 95 fL (79-100) Mean Corpuscular Hemoglobin 31 pg (25-35) Mean Corpuscular Hemoglobin Concent 32 g/dL (31-37) Red Cell Distribution Width 15.4 % (11.5-14.5) H Platelet Count 469 x10^3/uL (140-400) H Neutrophils (%) (Auto) 87 % (31-73) H Lymphocytes (%) (Auto) 6 % (24-48) L Monocytes (%) (Auto) 6 % (0-9) Eosinophils (%) (Auto) 1 % (0-3) Basophils (%) (Auto) 1 % (0-3) Neutrophils # (Auto) 13.3 x10^3/uL (1.8-7.7) H Lymphocytes # (Auto) 0.9 x10^3/uL (1.0-4.8) L Monocytes # (Auto) 0.9 x10^3/uL (0.0-1.1) Eosinophils # (Auto) 0.1 x10^3/uL (0.0-0.7) Basophils # (Auto) 0.1 x10^3/uL (0.0-0.2) Platelet Estimate Pending Sodium Level 135 mmol/L (136-145) L Potassium Level 4.2 mmol/L (3.5-5.1) Chloride Level 98 mmol/L (98-107) Carbon Dioxide Level 29 mmol/L (21-32) Anion Gap 8 (6-14) Blood Urea Nitrogen 24 mg/dL (8-26) Creatinine 1.3 mg/dL (0.7-1.3) Estimated GFR (Cockcroft-Gault) 52.9 Glucose Level 123 mg/dL (70-99) H Calcium Level 9.2 mg/dL (8.5-10.1) Magnesium Level Pending Laboratory Tests 08/30/21 16:30 Laboratory Tests 08/30/21 16:30 Vital Signs: Vital Signs Date Time Temp Pulse Resp B/P (MAP) Pulse Ox O2 Delivery O2 Flow Rate FiO2 08/30/21 15:55 98.3 80 16 141/63 (89) 97 Room Air 98.3 EKG: EKG: Sinus rhythm. Rate 82. Normal axis. Normal intervals. QTc 424. Single PAC. No ST segment changes, Q waves, or T wave inversions. [] Radiology/Procedures: Radiology/Procedures: [] Course & Med Decision Making: Course & Med Decision Making Pertinent Labs and Imaging studies reviewed. (See chart for details) Patient is a 81-year-old male who presents with a syncopal episode shortly after straining to have a bowel movement. Afebrile, with stable vital signs on arrival. Syncopal episode consistent with vasovagal syncope. He does report increasing constipation and rectal discomfort of the past few days. He did have stool in the rectal vault, but I was unable to manually disimpact. Is given MiraLAX and an enema. Labs show anemia that is at his baseline. Leukocytosis to 15 K. BMP unremarkable. With leukocytosis, work-up broadened with chest x-ray and UA to search for infectious source. He does have increasing right knee pain, and a history of septic arthritis, but does not have any palpable effusion, overlying redness, warmth, or fever to suggest infectious symptoms. States it feels nothing like his previous septic arthritis. 1713 UA appears infected with nitrites and numerous WBCs. Recommended admission with the patient, but he is requesting that he be treated as an outpatient. Discussed risks of worsening infection. His vital signs have remained stable. We will give a dose of cefdinir in the emergency department and send a prescription for oral cefdinir. Return precautions discussed for fever, chills, flank pain, n/v, inability to care for himself. 1752 Saritha Disclaimer: Saritha Disclaimer: This electronic medical record was generated, in whole or in part, using a voice recognition dictation system. Departure Departure Impression: Primary Impression: Vasovagal syncope Additional Impressions: Constipation Complicated UTI (urinary tract infection) Chronic pain of right knee Disposition: HOME / SELF CARE / HOMELESS Condition: STABLE Referrals: RENEE BRENNER (PCP) Call tomorrow to schedule an appointment for this week. Additional Instructions: You have a urinary tract infection. Please treat this with antibiotics cefdinir as prescribed. Please take the full 14-day course. Please follow-up with your primary care doctor early this week. Call their office tomorrow to tell them about your emergency department visit. If you develop high fevers, shaking chills, flank pain, nausea, vomiting, or have difficulty caring for yourself at home please return to the emergency department for reevaluation. Scripts Cefdinir (CEFDINIR) 300 Mg Capsule 1 CAP PO BID for 14 Days, #28 CAP 0 Refills Prov: LARRY MARVIN MD 08/30/21 LARRY MARVIN MD Aug 30, 2021 17:14
[2021-08-30 17:28] LABS: BILIRUBIN,URINE NEGATIVE (NEG); CLARITY,URINE CLOUDY; COLOR,URINE YELLOW; NITRITE,URINE POSITIVE (NEG); PROTEIN,URINE 30 mg/dL (NEG-TRACE); UROBILINOGEN,URINE 0.2 mg/dL (0.2 mg/dL)
[2021-08-30 17:38] LABS: % BASOS 1 % (0-3); % LYMPHS 3 % (24-48); % MONOS 4 % (0-10); % SEGS 92 % (35-66); ANISOCYTOSIS SLIGHT; HYPOCHROMIA SLIGHT; PLT ESTIMATE INCREASED (ADEQUATE); TOXIC GRANULATION MOD
[2021-08-30 17:40] LABS: BACTERIA,URINE MANY /HPF (0-FEW); WBC,URINE TNTC /HPF (0-4)
[2021-08-30] MEDS ORDERED: CEFD300C PO (17:57)
[2021-08-30] MEDS ORDERED: CEFDINIR 300 MG CAPSULE PO ONE (18:00)
--- NOTE | 2021-08-30 18:02 | RAD ---
Right knee 3 views. HISTORY: Increased pain, history of septic arthritis 3 views were taken of the right knee. There is a total joint in good position. There is no prior imag ing for comparison. There is no acute fracture. IMPRESSION: 1. Right knee prosthesis appears in good position. 2. No acute fracture noted. Electronically signed by: Adrián Argueta MD (08/30/2021 6:00 PM) [facility]
--- NOTE | 2021-08-30 18:10 | RAD ---
XR CHEST 1V CLINICAL INDICATIONS: Reason: screening, leukocytosis / Spl. Instructions: / History: COMPARISON: July 27, 2021. Findings: No acute lung infiltrate or pleural effusion or pulmonary edema or lung mass or pneumothora x is seen. The heart size, pulmonary vasculature, mediastinum and both ton are unremarkable. IMPRESSION: No acute radiographic abnormality is seen. Electronically signed by: Vlad Huntley MD (08/30/2021 6:07 PM) [id number]
[2021-08-30 18:19] VITALS: BP 121/59
== END 2021-08-30 18:35 | disposition home or self-care (01) ==
LOC: ER 15:42
DX: N39.0 Urinary tract infection, site not specified (principal); G89.29 Other chronic pain; M25.561 Pain in right knee; R55 Syncope and collapse; K59.00 Constipation, unspecified; I10 Essential (primary) hypertension; I52 Other heart disorders in diseases classified elsewhere; Z87.891 Personal history of nicotine dependence; I25.10 Atherosclerotic heart disease of native coronary artery without angina pectoris; Z88.8 Allergy status to other drugs, medicaments and biological substances
CPT/HCPCS: 36415; 71045; 73562; 80048; 81001; 83735; 85007; 85025; 99284